=== PATIENT | female | born 1955 | race Caucasian/White ===

== ENCOUNTER 2016-08-12 08:52 | Emergency (ER) | payer BC ==
[~2016-08-12 08:52] MED LIST: *BLDWK2; *BLDWK7; ALBU17IN INH; AMBI10TA PO; AMBIEN10 PO; AMBIEN5; AMO500 PO; AUG875 PO; AVELOX PO; BACTRIMDS PO; BLEPHGTTS TOPICAL; CALCWAF4; CECLOR PO; CLOT10TR PO; DIFLUC150 PO; DOXYCYC100 PO; DRISDOL50 PO; ELOCONCR TOPICAL; FLAG250T; FLAG500T; FLAGYL250 PO; LEVA750T PO; LEVAQUI500 PO; LEXAPRO10 PO; MACROBID PO; MOBIC7.5 PO; MOTRIN; MULTIVIT; MYCELEXTRO PO; NEXIUM40 PO; PRILOSEC20; PROM12SU; REGLAN5 PO; SKELAXIN8 PO; TUMS500C; TYLE325T5 PO; VICODIN; ZOFRAN4 PO; ZYRTEC10 PO; [UNRECOGNIZED DRUG - OTHER] -
[2016-08-12 10:02] LABS: ALBUMIN 3.9 GM/DL (3.2-5.2); ALBUMIN/GLOBULIN RATIO 1.05 (1.00-1.93); ALKALINE PHOSPHATASE 114 U/L (45-117); ALT/SGPT 21 U/L (12-78); ANION GAP 8 MEQ/L (8-16); AST/SGOT 16 U/L (15-37); BILIRUBIN,DIRECT < 0.1 MG/DL (0.0-0.2); BILIRUBIN,TOTAL 0.3 MG/DL (0.2-1.0); BLOOD UREA NITROGEN 8 MG/DL (7-18); CALCIUM LEVEL 8.8 MG/DL (8.5-10.1); CARBON DIOXIDE LEVEL 27 MEQ/L (21-32); CHLORIDE LEVEL 107 MEQ/L (98-107); CREATININE FOR GFR 0.78 MG/DL (0.55-1.02); GLOMERULAR FILTRATION RATE > 60.0 (>51); GLUCOSE, FASTING 103 MG/DL (70-105); POTASSIUM SERUM 3.8 MEQ/L (3.5-5.1); SODIUM LEVEL 142 MEQ/L (136-145); TOTAL PROTEIN 7.6 GM/DL (6.4-8.2)
[2016-08-12] MEDS ORDERED: MORPHINE 4 MG/ML 1ML SYRINGE As Ordered ONE (10:13)
[2016-08-12] MEDS ORDERED: ONDANSETRON 4MG/2ML VIAL (J2405) As Ordered ONE (10:13)
--- NOTE | 2016-08-12 10:50 | REP ---
PORTABLE CHEST: AP portable view of the chest is performed. There is no acute infiltrate or pulmonary edema. Cardiac silhouette is slightly prominent but is probably magnified. Mediastinal silhouette is unremarkable. There are degenerative changes of the spine. IMPRESSION: No evidence of acute pulmonary disease. Signed by Angelo Lamb MD 08/12/2016 02:17 P
[2016-08-12] MEDS ORDERED: ISOVUE-370 76% 100ML VIAL (Q9967) As Ordered ONE (11:04)
[2016-08-12] MEDS ORDERED: PERCOCET 5MG/325MG TAB As Ordered ONE (11:24)
[2016-08-12] MEDS ORDERED: CYCLOBENZAPRINE 10 MG TAB As Ordered ONE (11:25)
--- NOTE | 2016-08-12 12:00 | REP ---
Clinical: Acute Chest pain. Technique: Axial contrast enhanced images from the thoracic inlet to the upper abdomen using 100 ml Isovue 370 intravenous contrast material with multiplanar re-formations. Findings: Satisfactory enhancement of the pulmonary vasculature is achieved. Mild respiratory motion is appreciated. No obvious filling defects are identified to suggest pulmonary embolus. Further evaluation of the mediastinum demonstrates normal thoracic aorta and heart/pericardium. The bilateral lung kelly are symmetric and essentially well aerated without consolidation, nodule or mass lesion. Mild posterior dependent changes and trace atelectasis cannot be excluded. No effusion. No pneumothorax. Tracheobronchial tree is patent. No adenopathy noted. Surrounding musculoskeletal structures intact. Upper abdomen demonstrates right renal cyst. Impression: No evidence for pulmonary embolus. Mild posterior basilar dependent changes and trace atelectasis. Incompletely evaluated right renal cyst. Signed by Eldon Babcock MD 08/12/2016 11:51 A
--- NOTE | 2016-08-12 13:51 | EDDOCDS ---
Physician Documentation [facility] Name: Milena Ortiz Age: 60 yrs Sex: Female : 1955 Arrival Date: 08/12/2016 Time: 08:52 Bed 15 Private MD: Angelo Alvarenga Disposition: 08/12/16 13:13 Discharged to Home/Self Care. Impression: Palpitations, Chest pain, unspecified, Low back pain - upper back pain probable spasm. - Condition is Stable. - Discharge Instructions: Nonspecific Chest Pain, Musculoskeletal Pain, Palpitations. - Prescriptions for Ibuprofen 600 mg Oral Tablet - take 1 tablet by ORAL route every 8 hours As needed take with food; 20 tablet. [place] 5- 325 mg Oral Tablet - take 1 tablet by ORAL route every 6 hours As needed MDD: 4 tabs; 20 tablet. Cyclobenzaprine 10 mg Oral Tablet - take 1 tablet by ORAL route 3 times per day As needed; 15 tablet. - Medication Reconciliation, Local Pharmacy Hours form. - Follow up: Angelo Alvarenga MD; When: 2 - 3 days. Follow up: Ashish Salazar; When: Call to arrange an appointment. - Problem is new. - Symptoms have improved. - Notes: call to schedule close follow up appt with drs. salazar and leonel. return if worsening symptopms Historical: - Allergies: Aveloxnightmares; Pyridium (Upset stomach); Skelaxin (Upset stomach); Chlorthalidone (insomnia); Drisdol (Vomit); fluticasone (throat ulcer); - Home Meds: 1. Vitamin D Oral 2000 units daily (Last dose: 08/11/2016) 2. multivitamin Oral tab 1 tablet daily (Last dose: 08/11/2016) 3. Ambien 5 mg Oral tab 1 tab nightly as needed (Last dose: Unknown) 4. Claritin 10 mg Oral tab 1 tab once daily as needed (Last dose: Unknown) 5. Motrin 800 mg Oral tab 1 tab 3 times per day as needed (Last dose: 08/12/2016 03:00) - PMHx: hyperlipidemia; Vitamin D Deficiency; Anemia; Cancer, Ovarian; Grave's Disease; - PSHx: Hysterectomy; Tonsillectomy; - Social history: Smoking status: Patient states was never smoker of tobacco. No barriers to communication noted, The patient speaks fluent Bermudian. - Family history: Not pertinent. - : The pt / caregiver states he / she is not on anticoagulants. Home medication list is obtained from the patient. - Exposure Risk Screening:: None identified. Vital Signs: 08/12 09:08 BP 189 / 91 (auto/); mk4 09:11 BP 187 / 91; Pulse 73; Resp 20; Temp 97.2(O); Pulse Ox 96% on R/A; Weight 104.33 kg / jc4 230.01 lbs; Height 5 ft. 3 in. (160.02 cm); Pain 7/10; 09:13 Pulse 74 MON; Pulse Ox 96% ; mk4 09:29 BP 165 / 77 (auto/); mk4 09:29 Pulse 72 MON; Pulse Ox 95% ; mk4 09:38 BP 200 / 95 (auto/); mk4 09:38 Pulse 70 MON; Pulse Ox 96% ; mk4 09:53 BP 161 / 85 (auto/); mk4 09:53 Pulse 68 MON; Pulse Ox 96% ; mk4 10:08 BP 139 / 81 (auto/); mk4 10:09 Pulse 72 MON; Pulse Ox 95% ; mk4 10:23 BP 138 / 73 (auto/); mk4 10:24 Pulse 70 MON; Pulse Ox 95% ; mk4 10:38 BP 137 / 63 (auto/); mk4 10:38 Pulse 72 MON; Pulse Ox 95% ; mk4 10:52 Pulse 68 MON; Pulse Ox 93% ; cjh 10:53 BP 122 / 58 (auto/); cjh 11:07 Pulse 72 MON; Pulse Ox 94% ; Pain 2/10; cjh 11:08 BP 135 / 70 (auto/); cjh 11:52 Pulse 70 MON; Pulse Ox 95% ; cjh 11:53 BP 137 / 69 (auto/); cjh 12:07 Pulse 70 MON; Pulse Ox 93% ; cjh 12:08 BP 135 / 64 (auto/); cjh 12:22 Pulse 70 MON; Pulse Ox 93% ; cjh 12:23 BP 136 / 65 (auto/); cjh 12:37 Pulse 78 MON; Pulse Ox 95% ; cjh 12:38 BP 158 / 71 (auto/); cjh 12:52 Pulse 70 MON; Pulse Ox 94% ; cjh 12:53 BP 151 / 73 (auto/); cjh 13:07 Pulse 72 MON; Pulse Ox 97% ; cjh 13:08 BP 138 / 90 (auto/); cjh 13:22 Pulse 70 MON; Pulse Ox 98% ; cjh 13:23 BP 141 / 86 (auto/); cjh 13:34 Pulse 66 MON; Pulse Ox 98% ; cjh 13:34 BP 145 / 70 (auto/); cjh 13:47 BP 154 / 70; Pulse 74; Resp 16; Temp 96.3; Pulse Ox 98% ; Pain 0/10; cjh 09:11 Body Mass Index 40.74 (104.33 kg, 160.02 cm) jc4 MDM: 08:57 ECG WITH READING ER PHYS+CARDIAG ordered. EDMS 09:40 IV Saline Lock ordered. ml 09:40 Ondansetron 4 mg IVP once ordered. ml 09:40 morphine 4 mg IVP once; slow ivp ordered. ml 09:41 CBC with Diff Ordered. EDMS 09:41 MED Profile Ordered. EDMS 09:41 CIP Ordered. EDMS 09:41 Troponin Ordered. EDMS 09:41 Liver Profile Ordered. EDMS 09:41 TSH with Free T4 Ordered. EDMS 09:42 Chest, 1 View Ordered. EDMS 09:56 Financial registration complete. mm15 10:05 [facility] Payment Agreement was scanned into [employer] and attached to record. mm15 10:54 MED Profile Reviewed. ml 10:54 CIP Reviewed. ml 10:54 Troponin Reviewed. ml 10:54 Liver Profile Reviewed. ml 10:54 TSH with Free T4 Reviewed. ml 10:56 CT Chest Angio R/O PE Ordered. EDMS 10:58 oxyCODONE-acetaminophen 5 mg-325 mg 1 tabs PO once ordered. ml 10:58 Cyclobenzaprine 10 mg PO once ordered. ml 13:08 Chest, 1 View Reviewed. ml 13:08 CT Chest Angio R/O PE Reviewed. ml Administered Medications: 10:23 Drug: Ondansetron 4 mg Route: IVP; Site: right antecubital; mk4 10:23 Drug: morphine 4 mg [morphine 4 mg/mL intravenous cartridge (1 mL)] Route: IVP; Site: mk4 right antecubital; 11:42 Drug: oxyCODONE-acetaminophen 1 tabs [oxycodone-acetaminophen 5 mg-325 mg tablet (1 cjh tabs)] Route: PO; 12:16 Follow up: Response: Confirmed pt not driving.; No Adverse Reaction; Pain is decreased [facility] 11:42 Drug: Cyclobenzaprine 10 mg [cyclobenzaprine 10 mg tablet (1 tabs)] Route: PO; [facility] 12:16 Follow up: Response: Confirmed pt not driving.; No Adverse Reaction; Pain is decreased [facility] Signatures: Dispatcher [employer] EDUri Garcia MD MD Kelley Ferrari RN RN jc4 Madhavi Garcia RN RN cj Elver Argueta mm15 Courtney Moreno RN RN mk4 The chart was reviewed and I authenticate all verbal orders and agree with the evaluation and treatment provided.Attachments: 10:05 [facility] Payment Agreement mm15 MTDD
--- NOTE | 2016-08-12 13:52 | EDDOCDS ---
Nurse's Notes [facility] Name: Milena Ortiz Age: 60 yrs Sex: Female : 1955 Arrival Date: 08/12/2016 Time: 08:52 Bed 15 Private MD: Angelo Alvarenga Diagnosis: Palpitations;Chest pain, unspecified;Low back pain-upper back pain probable spasm Presentation: 08/12 08:59 Presenting complaint: Patient states: developed pain in left scapula following jc4 exercising on 08/08 and now has tightness in the side of her chest since "over the weekend". Denies any shortness of breath but states, "it feels as if I have to take a deeper breath". States has had palpitations yesterday. Aspirin was not taken prior to arrival. Suicide/Homicide risk assessment- the patient denies having any suicidal and/or homicidal ideations and does not present with any other emotional, behavioral or mental health complaints. Status: Patient is not a juke box servicer or dependent. Transition of care: patient was not received from another setting of care. 08:59 Acuity: CANDI Level 2 jc4 08:59 Method Of Arrival: Walkin/Carried/Asstd jc4 09:12 Adult Sepsis Screening: The patient does not have new or worsening altered mentation. jc4 Patient's respiratory rate is less than 22. Systolic blood pressure is greater than 100. Patient has a qSOFA score of 0- Negative Sepsis Screen. Triage Assessment: 09:06 General: Appears uncomfortable. Pain: Pain currently is 7 out of 10 on a pain scale. jc4 The patient is triaged at the bedside. See Assessment in Nurses Notes section of ED record. Cardiovascular: Chest pain is described as Pain is 7 out of 10 on a pain scale. quality is tightness is located in left anterior chest wall radiates Does not radiate. episodes are continuous began "over the weekend". Historical: - Allergies: Aveloxnightmares; Pyridium (Upset stomach); Skelaxin (Upset stomach); Chlorthalidone (insomnia); Drisdol (Vomit); fluticasone (throat ulcer); - Home Meds: 1. Vitamin D Oral 2000 units daily (Last dose: 08/11/2016) 2. multivitamin Oral tab 1 tablet daily (Last dose: 08/11/2016) 3. Ambien 5 mg Oral tab 1 tab nightly as needed (Last dose: Unknown) 4. Claritin 10 mg Oral tab 1 tab once daily as needed (Last dose: Unknown) 5. Motrin 800 mg Oral tab 1 tab 3 times per day as needed (Last dose: 08/12/2016 03:00) - PMHx: hyperlipidemia; Vitamin D Deficiency; Anemia; Cancer, Ovarian; Grave's Disease; - PSHx: Hysterectomy; Tonsillectomy; - Social history: Smoking status: Patient states was never smoker of tobacco. No barriers to communication noted, The patient speaks fluent Bengali. - Family history: Not pertinent. - : The pt / caregiver states he / she is not on anticoagulants. Home medication list is obtained from the patient. - Exposure Risk Screening:: None identified. Screenin:54 Screening information is obtained from the patient. Fall risk: No risks identified. mk4 Assistance ADL's: requires no assistance with activities of daily living. Abuse/DV Screen: The patient / caregiver reports he/she is: not in a situation that causes fear, pain or injury. Nutritional screening: No deficits noted. Advance Directives: Currently, there is no health care proxy. There is no active DNR order. There is no living will. There is no Power of Cage Cashier. Advance directive information has not previously been placed in an [facility] medical record. Further advance directive information is declined. home support is adequate. Assessment: 09:36 General: Appears in no apparent distress, comfortable, Behavior is cooperative. mk4 09:36 Pain: Location: left scapular area Pain began Friday after excercising, gradually mk4 moving to left chest. Cardiovascular: Rhythm is regular. Respiratory: Airway is patent Respiratory effort is even, unlabored, Respiratory pattern is regular, Breath sounds are clear bilaterally. 10:10 General: Appears uncomfortable. General: denies any chest pain states left scapular mk4 pain worse, Dr Lamb aware and orders recvd . Pain: Location: left scapular area Pain currently is 8 out of 10 on a pain scale. Neurological: Level of Consciousness is awake, alert. Cardiovascular: Rhythm is regular. Derm: Skin is intact, is healthy with good turgor, Skin is pink, warm & dry. 10:54 General: Appears uncomfortable, pt states the morphine took " the hard pain away" but mk4 she is still having what feels like " muscle spasm left trapezius and scapular area. 11:42 General: returned from CT, tolerated well, gingerale provided,medications administered. [facility] 12:15 General: resting quietly on stretcher reports pain decreased to 2/10 and comfortable, cjh at bedside, denies further needs, will continue to monitor. 13:47 General: Appears in no apparent distress, comfortable, Behavior is appropriate for age, cjh cooperative, denies pain or discomfort at this hawk e, reviewed discharge instructions, encouraged and answered questions. leaving with SO who is at bedside, declines offer of wheelchair to curb, declines other assistance. Vital Signs: 09:08 BP 189 / 91 (auto/); mk4 09:11 BP 187 / 91; Pulse 73; Resp 20; Temp 97.2(O); Pulse Ox 96% on R/A; Weight 104.33 kg; jc4 Height 5 ft. 3 in. (160.02 cm); Pain 7/10; 09:13 Pulse 74 MON; Pulse Ox 96% ; mk4 09:29 BP 165 / 77 (auto/); mk4 09:29 Pulse 72 MON; Pulse Ox 95% ; mk4 09:38 BP 200 / 95 (auto/); mk4 09:38 Pulse 70 MON; Pulse Ox 96% ; mk4 09:53 BP 161 / 85 (auto/); mk4 09:53 Pulse 68 MON; Pulse Ox 96% ; mk4 10:08 BP 139 / 81 (auto/); mk4 10:09 Pulse 72 MON; Pulse Ox 95% ; mk4 10:23 BP 138 / 73 (auto/); mk4 10:24 Pulse 70 MON; Pulse Ox 95% ; mk4 10:38 BP 137 / 63 (auto/); mk4 10:38 Pulse 72 MON; Pulse Ox 95% ; mk4 10:52 Pulse 68 MON; Pulse Ox 93% ; cjh 10:53 BP 122 / 58 (auto/); cjh 11:07 Pulse 72 MON; Pulse Ox 94% ; Pain 2/10; cjh 11:08 BP 135 / 70 (auto/); cjh 11:52 Pulse 70 MON; Pulse Ox 95% ; cjh 11:53 BP 137 / 69 (auto/); cjh 12:07 Pulse 70 MON; Pulse Ox 93% ; cjh 12:08 BP 135 / 64 (auto/); cjh 12:22 Pulse 70 MON; Pulse Ox 93% ; cjh 12:23 BP 136 / 65 (auto/); cjh 12:37 Pulse 78 MON; Pulse Ox 95% ; cjh 12:38 BP 158 / 71 (auto/); cjh 12:52 Pulse 70 MON; Pulse Ox 94% ; cjh 12:53 BP 151 / 73 (auto/); cjh 13:07 Pulse 72 MON; Pulse Ox 97% ; cjh 13:08 BP 138 / 90 (auto/); cjh 13:22 Pulse 70 MON; Pulse Ox 98% ; cjh 13:23 BP 141 / 86 (auto/); cjh 13:34 Pulse 66 MON; Pulse Ox 98% ; cjh 13:34 BP 145 / 70 (auto/); cjh 13:47 BP 154 / 70; Pulse 74; Resp 16; Temp 96.3; Pulse Ox 98% ; Pain 0/10; cjh 09:11 Body Mass Index 40.74 (104.33 kg, 160.02 cm) [facility] Vitals: 09:06 Log In Time: August 12, 2016 at 08:54. 4 ED Course: 08:53 Patient visited by Jarrett Wan, Reg. lg 08:53 Angelo Alvarenga MD is Private Physician. lg 08:53 Patient moved to Waiting lg 08:56 Patient moved to 15 4 09:00 Triage Initiated 4 09:12 The patient / caregiver is instructed regarding the plan of care and ED course. Cardiac jc4 monitor on. Pulse ox on. NIBP on. 09:30 Uri Coy MD is Attending Physician. ml 09:30 Patient visited by Uri Coy MD. ml 09:39 Patient visited by Courtney Moreno, CHRISTINA. mk4 10:00 Inserted saline lock: 20 gauge in right antecubital area and blood collected. mk4 10:05 [facility] Payment Agreement was scanned into [employer] and attached to record. mm15 10:11 Patient visited by Courtney Moreno, RN. mk4 10:47 Patient visited by Courtney Moreno, CHRISTINA. mk4 10:54 No procedures done that require assistance. mk4 11:16 Chest, 1 View Returned. EDMS 12:09 Patient visited by Suki Vivas PCA. ar3 12:14 CT Chest Angio R/O PE Returned. EDMS 12:44 Patient visited by Madhavi Garcia RN. [facility] 13:12 Angelo Alvarenga MD is Referral Physician. ml 13:12 Ashish Salazar is Referral Physician. ml 13:47 Discontinued lock intact, bleeding controlled, pressure dressing applied, No cjh redness/swelling at site. Administered Medications: 10:23 Drug: Ondansetron 4 mg Route: IVP; Site: right antecubital; mk4 10:23 Drug: morphine 4 mg [morphine 4 mg/mL intravenous cartridge (1 mL)] Route: IVP; Site: mk4 right antecubital; 11:42 Drug: oxyCODONE-acetaminophen 1 tabs [oxycodone-acetaminophen 5 mg-325 mg tablet (1 cjh tabs)] Route: PO; 12:16 Follow up: Response: Confirmed pt not driving.; No Adverse Reaction; Pain is decreased [facility] 11:42 Drug: Cyclobenzaprine 10 mg [cyclobenzaprine 10 mg tablet (1 tabs)] Route: PO; [facility] 12:16 Follow up: Response: Confirmed pt not driving.; No Adverse Reaction; Pain is decreased [facility] Order Results: Lab Order: MED Profile; SPEC'M 08/12/ 09:30 Test: GLUCOSE, FASTING; Value: 103; Range: 70-105; Units: MG/DL; Status: F Test: BLOOD UREA NITROGEN; Value: 8; Range: 7-18; Units: MG/DL; Status: F Test: CREATININE FOR GFR; Value: 0.78; Range: 0.55-1.02; Units: MG/DL; Status: F Test: GLOMERULAR FILTRATION RATE; Value: > 60.0; Range: >51; Status: F Test: SODIUM LEVEL; Value: 142; Range: 136-145; Units: MEQ/L; Status: F Test: POTASSIUM SERUM; Value: 3.8; Range: 3.5-5.1; Units: MEQ/L; Status: F Test: CHLORIDE LEVEL; Value: 107; Range: 98-107; Units: MEQ/L; Status: F Test: CARBON DIOXIDE LEVEL; Value: 27; Range: 21-32; Units: MEQ/L; Status: F Test: ANION GAP; Value: 8; Range: 8-16; Units: MEQ/L; Status: F Test: CALCIUM LEVEL; Value: 8.8; Range: 8.5-10.1; Units: MG/DL; Status: F Test Note: ; Units are mL/min/1.73 m2 Chronic Kidney Disease Staging per NKF: Stage I & II GFR >=60 Normal to Mildly Decreased Stage III GFR 30-59 Moderately Decreased Stage IV GFR 15-29 Severely Decreased Stage V GFR <15 Very Little GFR Left ESRD GFR <15 on STORAGE GARAGE ATTENDANT Lab Order: CIP; 08/12/16 09:30 Test: CPK CREATINE PHOSPHOKINASE; Value: 77; Range: 26-192; Units: U/L; Status: F Test: CK-MB VALUE MASS; Value: 1.6; Range: 0.0-3.6; Units: NG/ML; Status: F Test: MB/CK RELATIVE INDEX; Value: 2.07; Range: < OR =4; Status: F Test Note: ; DIAGNOSIS CRITERIA MMB ng/ml Relative Index (RI) NON-AMI < or = 5 N/A LAMB ZONE > 5 < or = 4 AMI > 5 > 4 Lab Order: Troponin; 08/12/16 09:30 Test: TROPONIN I; Value: < 0.02; Range: < 0.10; Units: NG/ML; Status: F Test Note: ; Troponin I Reference Interval for [place] LOCI: 99th Percentile= 0.00-0.045 ng/ml Risk Stratification: <= 0.10 ng/ml Decreased Risk for Adverse Clinical Events. 0.10-1.50 ng/ml Increased Risk for Adverse Clinical Events. Evaluation of additional criterion and/or repeat testing in 2-6 hours is suggested to rule out myocardial damage. >= 1.50 ng/ml Indicative of Myocardial Injury. Lab Order: Liver Profile; 08/12/16 09:30 Test: AST/SGOT; Value: 16; Range: 15-37; Units: U/L; Status: F Test: ALT/SGPT; Value: 21; Range: 12-78; Units: U/L; Status: F Test: ALKALINE PHOSPHATASE; Value: 114; Range: 45-117; Units: U/L; Status: F Test: BILIRUBIN,TOTAL; Value: 0.3; Range: 0.2-1.0; Units: MG/DL; Status: F Test: BILIRUBIN,DIRECT; Value: < 0.1; Range: 0.0-0.2; Units: MG/DL; Status: F Test: TOTAL PROTEIN; Value: 7.6; Range: 6.4-8.2; Units: GM/DL; Status: F Test: ALBUMIN; Value: 3.9; Range: 3.2-5.2; Units: GM/DL; Status: F Test: ALBUMIN/GLOBULIN RATIO; Value: 1.05; Range: 1.00-1.93; Status: F Lab Order: TSH with Free T4; SPEC'M 08/12/16 09:30 Test: THYROID STIMULATING HORMONE; Value: 0.508; Range: 0.358-3.740; Units: uIU/ML; Status: F Test: FREE T4; Value: 1.30; Range: 0.76-1.46; Units: NG/DL; Status: F Radiology Order: Chest, 1 View Test: Chest, 1 View REASON FOR EXAMINATION: Chest Pain; ; PORTABLE CHEST:; ; AP portable view of the chest is performed.; ; There is no acute infiltrate or pulmonary edema. Cardiac silhouette is slightly; prominent but is probably magnified. Mediastinal silhouette is unremarkable.; There are degenerative changes of the spine.; ; IMPRESSION:; No evidence of acute pulmonary disease.; ; ; ; Unreviewed; Radiology Order: CT Chest Angio R/O PE Test: CT Chest Angio R/O PE REASON FOR EXAMINATION: cp; Clinical: Acute Chest pain.; ; Technique: Axial contrast enhanced images from the thoracic inlet to the upper; abdomen using 100 ml Isovue 370 intravenous contrast material with multiplanar; re-formations.; ; Findings: Satisfactory enhancement of the pulmonary vasculature is achieved.; Mild respiratory motion is appreciated. No obvious filling defects are; identified to suggest pulmonary embolus. Further evaluation of the mediastinum; demonstrates normal thoracic aorta and heart/pericardium. The bilateral lung; kelly are symmetric and essentially well aerated without consolidation, nodule; or mass lesion. Mild posterior dependent changes and trace atelectasis cannot be; excluded. No effusion. No pneumothorax. Tracheobronchial tree is patent. No; adenopathy noted. Surrounding musculoskeletal structures intact. Upper abdomen; demonstrates right renal cyst.; ; Impression:; No evidence for pulmonary embolus.; Mild posterior basilar dependent changes and trace atelectasis.; Incompletely evaluated right renal cyst.; ; ; Signed by; Eldno Babcock MD 08/12/2016 11:51 A; Outcome: 13:13 Discharge ordered by Provider. 13:47 Discharge Assessment: Patient awake, alert and oriented x 3. No cognitive and/or [facility] functional deficits noted. Patient verbalized understanding of disposition instructions. patient administered narcotics - yes. Pt provided with safe discharge. The following High Risk Discharge criteria are identified: None. Discharged to home ambulatory, with significant other. Condition: good Condition: stable Condition: improved. Discharge instructions given to patient, Instructed on discharge instructions, follow up and referral plans. medication usage, Demonstrated understanding of instructions, medications, Pt was receptive of discharge instructions/ teaching. Prescriptions given X 3. CT Study completed. Property :Personal belongings accompany Pt. 13:50 Patient left the ED. [facility] Signatures: Dispatcher [employer] EDMS Uri Coy MD MD ml Jarrett Wan, Reg Reg lg Suki Vivas, SECTION LABORER SECTION LABORER ar3 Kelley Ferrari, RN RN jc4 Madhavi Garcia RN RN [facility] Elver Argueta mm15 Courtney Moreno, RN RN mk4 MTDD
[2016-08-12 15:43] LABS: BASO % 0.3 % (0.0-1.0); EOS # 0.2 K/mm3 (0.0-0.50); EOS % 3.3 % (0.0-3.0); LARGE UNSTAINED CELL # 0.1 K/mm3 (0.0-0.4); LARGE UNSTAINED CELL % 1.7 % (0.0-4.0); LYMPH # 1.5 K/mm3 (1.5-4.5); LYMPH % 26.1 % (24.0-44.0); MEAN CORPUSCULAR HEMOGLOBIN 28.4 pg (27.0-33.0); MEAN CORPUSCULAR HGB CONC 33.1 g/dl (32.0-36.5); MEAN CORPUSCULAR VOLUME 85.9 fl (80.0-96.0); MONO # 0.3 K/mm3 (0.0-0.8); MONO % 4.9 % (0.0-5.0); NEUTROPHILS # 3.6 K/mm3 (1.8-7.7); NEUTROPHILS % 63.9 % (36.0-66.0); PLATELET COUNT, AUTOMATED 302 k/mm3 (150-450); RED CELL DISTRIBUTION WIDTH 13.1 % (11.5-14.5); WHITE BLOOD COUNT 5.6 K/mm3 (4.0-10.0)
--- NOTE | 2016-08-13 07:46 | ECGEPIP ---
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
--- NOTE | 2016-08-14 14:51 | EDDOCDS ---
Nurse's Notes [facility] Name: Lo Ortiz Age: 60 yrs Sex: Female : 1955 Arrival Date: 08/12/2016 Time: 08:52 Bed 15 Private MD: Angelo Alvarenga Diagnosis: Palpitations;Chest pain, unspecified;Low back pain-upper back pain probable spasm Presentation: 08/12 08:59 Presenting complaint: Patient states: developed pain in left scapula following jc4 exercising on 08/08 and now has tightness in the side of her chest since "over the weekend". Denies any shortness of breath but states, "it feels as if I have to take a deeper breath". States has had palpitations yesterday. Aspirin was not taken prior to arrival. Suicide/Homicide risk assessment- the patient denies having any suicidal and/or homicidal ideations and does not present with any other emotional, behavioral or mental health complaints. Status: Patient is not a managed services sales consultant or dependent. Transition of care: patient was not received from another setting of care. 08:59 Acuity: CANDI Level 2 jc4 08:59 Method Of Arrival: Walkin/Carried/Asstd jc4 09:12 Adult Sepsis Screening: The patient does not have new or worsening altered mentation. jc4 Patient's respiratory rate is less than 22. Systolic blood pressure is greater than 100. Patient has a qSOFA score of 0- Negative Sepsis Screen. Triage Assessment: 09:06 General: Appears uncomfortable. Pain: Pain currently is 7 out of 10 on a pain scale. jc4 The patient is triaged at the bedside. See Assessment in Nurses Notes section of ED record. Cardiovascular: Chest pain is described as Pain is 7 out of 10 on a pain scale. quality is tightness is located in left anterior chest wall radiates Does not radiate. episodes are continuous began "over the weekend". Historical: - Allergies: Aveloxnightmares; Pyridium (Upset stomach); Skelaxin (Upset stomach); Chlorthalidone (insomnia); Drisdol (Vomit); fluticasone (throat ulcer); - Home Meds: 1. Vitamin D Oral 2000 units daily (Last dose: 08/11/2016) 2. multivitamin Oral tab 1 tablet daily (Last dose: 08/11/2016) 3. Ambien 5 mg Oral tab 1 tab nightly as needed (Last dose: Unknown) 4. Claritin 10 mg Oral tab 1 tab once daily as needed (Last dose: Unknown) 5. Motrin 800 mg Oral tab 1 tab 3 times per day as needed (Last dose: 08/12/2016 03:00) - PMHx: hyperlipidemia; Vitamin D Deficiency; Anemia; Cancer, Ovarian; Grave's Disease; - PSHx: Hysterectomy; Tonsillectomy; - Social history: Smoking status: Patient states was never smoker of tobacco. No barriers to communication noted, The patient speaks fluent Mongolian. - Family history: Not pertinent. - : The pt / caregiver states he / she is not on anticoagulants. Home medication list is obtained from the patient. - Exposure Risk Screening:: None identified. Screenin:54 Screening information is obtained from the patient. Fall risk: No risks identified. mk4 Assistance ADL's: requires no assistance with activities of daily living. Abuse/DV Screen: The patient / caregiver reports he/she is: not in a situation that causes fear, pain or injury. Nutritional screening: No deficits noted. Advance Directives: Currently, there is no health care proxy. There is no active DNR order. There is no living will. There is no Power of Tile Layer Supervisor. Advance directive information has not previously been placed in an [facility] medical record. Further advance directive information is declined. home support is adequate. Assessment: 09:36 General: Appears in no apparent distress, comfortable, Behavior is cooperative. mk4 09:36 Pain: Location: left scapular area Pain began Friday after excercising, gradually mk4 moving to left chest. Cardiovascular: Rhythm is regular. Respiratory: Airway is patent Respiratory effort is even, unlabored, Respiratory pattern is regular, Breath sounds are clear bilaterally. 10:10 General: Appears uncomfortable. General: denies any chest pain states left scapular mk4 pain worse, Dr Lamb aware and orders recvd . Pain: Location: left scapular area Pain currently is 8 out of 10 on a pain scale. Neurological: Level of Consciousness is awake, alert. Cardiovascular: Rhythm is regular. Derm: Skin is intact, is healthy with good turgor, Skin is pink, warm & dry. 10:54 General: Appears uncomfortable, pt states the morphine took " the hard pain away" but mk4 she is still having what feels like " muscle spasm left trapezius and scapular area. 11:42 General: returned from CT, tolerated well, gingerale provided,medications administered. [facility] 12:15 General: resting quietly on stretcher reports pain decreased to 2/10 and comfortable, cjh at bedside, denies further needs, will continue to monitor. 13:47 General: Appears in no apparent distress, comfortable, Behavior is appropriate for age, cjh cooperative, denies pain or discomfort at this hawk e, reviewed discharge instructions, encouraged and answered questions. leaving with SO who is at bedside, declines offer of wheelchair to curb, declines other assistance. Vital Signs: 09:08 BP 189 / 91 (auto/); mk4 09:11 BP 187 / 91; Pulse 73; Resp 20; Temp 97.2(O); Pulse Ox 96% on R/A; Weight 104.33 kg; jc4 Height 5 ft. 3 in. (160.02 cm); Pain 7/10; 09:13 Pulse 74 MON; Pulse Ox 96% ; mk4 09:29 BP 165 / 77 (auto/); mk4 09:29 Pulse 72 MON; Pulse Ox 95% ; mk4 09:38 BP 200 / 95 (auto/); mk4 09:38 Pulse 70 MON; Pulse Ox 96% ; mk4 09:53 BP 161 / 85 (auto/); mk4 09:53 Pulse 68 MON; Pulse Ox 96% ; mk4 10:08 BP 139 / 81 (auto/); mk4 10:09 Pulse 72 MON; Pulse Ox 95% ; mk4 10:23 BP 138 / 73 (auto/); mk4 10:24 Pulse 70 MON; Pulse Ox 95% ; mk4 10:38 BP 137 / 63 (auto/); mk4 10:38 Pulse 72 MON; Pulse Ox 95% ; mk4 10:52 Pulse 68 MON; Pulse Ox 93% ; cjh 10:53 BP 122 / 58 (auto/); cjh 11:07 Pulse 72 MON; Pulse Ox 94% ; Pain 2/10; cjh 11:08 BP 135 / 70 (auto/); cjh 11:52 Pulse 70 MON; Pulse Ox 95% ; cjh 11:53 BP 137 / 69 (auto/); cjh 12:07 Pulse 70 MON; Pulse Ox 93% ; cjh 12:08 BP 135 / 64 (auto/); cjh 12:22 Pulse 70 MON; Pulse Ox 93% ; cjh 12:23 BP 136 / 65 (auto/); cjh 12:37 Pulse 78 MON; Pulse Ox 95% ; cjh 12:38 BP 158 / 71 (auto/); cjh 12:52 Pulse 70 MON; Pulse Ox 94% ; cjh 12:53 BP 151 / 73 (auto/); cjh 13:07 Pulse 72 MON; Pulse Ox 97% ; cjh 13:08 BP 138 / 90 (auto/); cjh 13:22 Pulse 70 MON; Pulse Ox 98% ; cjh 13:23 BP 141 / 86 (auto/); cjh 13:34 Pulse 66 MON; Pulse Ox 98% ; cjh 13:34 BP 145 / 70 (auto/); cjh 13:47 BP 154 / 70; Pulse 74; Resp 16; Temp 96.3; Pulse Ox 98% ; Pain 0/10; cjh 09:11 Body Mass Index 40.74 (104.33 kg, 160.02 cm) [facility] Vitals: 09:06 Log In Time: August 12, 2016 at 08:54. 4 ED Course: 08:53 Patient visited by Jarrett Wan, Reg. lg 08:53 Angelo Alvarenga MD is Private Physician. lg 08:53 Patient moved to Waiting lg 08:56 Patient moved to 15 4 09:00 Triage Initiated 4 09:12 The patient / caregiver is instructed regarding the plan of care and ED course. Cardiac jc4 monitor on. Pulse ox on. NIBP on. 09:30 Uri Coy MD is Attending Physician. ml 09:30 Patient visited by Uri Coy MD. ml 09:39 Patient visited by Courtney Moreno, CHRISTINA. mk4 10:00 Inserted saline lock: 20 gauge in right antecubital area and blood collected. mk4 10:05 [facility] Payment Agreement was scanned into [employer] and attached to record. mm15 10:11 Patient visited by Courtney Moreno, RN. mk4 10:47 Patient visited by Courtney Moreno, CHRISTINA. mk4 10:54 No procedures done that require assistance. mk4 11:16 Chest, 1 View Returned. EDMS 12:09 Patient visited by Suki Vivas PCA. ar3 12:14 CT Chest Angio R/O PE Returned. EDMS 12:44 Patient visited by Madhavi Garcia RN. cj 13:12 Angelo Alvarenga MD is Referral Physician. ml 13:12 Ashish Salazar is Referral Physician. ml 13:47 Discontinued lock intact, bleeding controlled, pressure dressing applied, No [facility] redness/swelling at site. 14:22 Chest, 1 View Returned. EDMS 0214 08:04 EKG-ADULT Returned. EDMS 11:07 T-Sheet-- Draft Copy was scanned into [employer] and attached to record. 11:08 ECG/EKG was scanned into [employer] and attached to record. 11:08 Radiology Report was scanned into [employer] and attached to record. Administered Medications: 08/12 10:23 Drug: Ondansetron 4 mg Route: IVP; Site: right antecubital; mk4 10:23 Drug: morphine 4 mg [morphine 4 mg/mL intravenous cartridge (1 mL)] Route: IVP; Site: mk4 right antecubital; 11:42 Drug: oxyCODONE-acetaminophen 1 tabs [oxycodone-acetaminophen 5 mg-325 mg tablet (1 cjh tabs)] Route: PO; 12:16 Follow up: Response: Confirmed pt not driving.; No Adverse Reaction; Pain is decreased [facility] 11:42 Drug: Cyclobenzaprine 10 mg [cyclobenzaprine 10 mg tablet (1 tabs)] Route: PO; [facility] 12:16 Follow up: Response: Confirmed pt not driving.; No Adverse Reaction; Pain is decreased [facility] Order Results: Lab Order: CBC with Diff; SPEC'M 08/12/16 09:30 Test: WHITE BLOOD COUNT; Value: 5.6; Range: 4.0-10.0; Units: K/mm3; Status: F Test: RED BLOOD COUNT; Value: 4.61; Range: 4.00-5.40; Units: M/mm3; Status: F Test: HEMOGLOBIN; Value: 13.1; Range: 12.0-16.0; Units: g/dl; Status: F Test: HEMATOCRIT; Value: 39.6; Range: 36.0-47.0; Units: %; Status: F Test: MEAN CORPUSCULAR VOLUME; Value: 85.9; Range: 80.0-96.0; Units: fl; Status: F Test: MEAN CORPUSCULAR HEMOGLOBIN; Value: 28.4; Range: 27.0-33.0; Units: pg; Status: F Test: MEAN CORPUSCULAR HGB CONC; Value: 33.1; Range: 32.0-36.5; Units: g/dl; Status: F Test: RED CELL DISTRIBUTION WIDTH; Value: 13.1; Range: 11.5-14.5; Units: %; Status: F Test: PLATELET COUNT, AUTOMATED; Value: 302; Range: 150-450; Units: k/mm3; Status: F Test: NEUTROPHILS %; Value: 63.9; Range: 36.0-66.0; Units: %; Status: F Test: LYMPH %; Value: 26.1; Range: 24.0-44.0; Units: %; Status: F Test: MONO %; Value: 4.9; Range: 0.0-5.0; Units: %; Status: F Test: EOS %; Value: 3.3; Range: 0.0-3.0; Abnormal: Above high normal; Units: %; Status: F Test: BASO %; Value: 0.3; Range: 0.0-1.0; Units: %; Status: F Test: LARGE UNSTAINED CELL %; Value: 1.7; Range: 0.0-4.0; Units: %; Status: F Test: NEUTROPHILS #; Value: 3.6; Range: 1.8-7.7; Units: K/mm3; Status: F Test: LYMPH #; Value: 1.5; Range: 1.5-4.5; Units: K/mm3; Status: F Test: MONO #; Value: 0.3; Range: 0.0-0.8; Units: K/mm3; Status: F Test: EOS #; Value: 0.2; Range: 0.0-0.50; Units: K/mm3; Status: F Test: BASO #; Value: 0.0; Range: 0.0-0.2; Units: K/mm3; Status: F Test: LARGE UNSTAINED CELL #; Value: 0.1; Range: 0.0-0.4; Units: K/mm3; Status: F Lab Order: MED Profile; SPEC08/12/16 09:30 Test: GLUCOSE, FASTING; Value: 103; Range: 70-105; Units: MG/DL; Status: F Test: BLOOD UREA NITROGEN; Value: 8; Range: 7-18; Units: MG/DL; Status: F Test: CREATININE FOR GFR; Value: 0.78; Range: 0.55-1.02; Units: MG/DL; Status: F Test: GLOMERULAR FILTRATION RATE; Value: > 60.0; Range: >51; Status: F Test: SODIUM LEVEL; Value: 142; Range: 136-145; Units: MEQ/L; Status: F Test: POTASSIUM SERUM; Value: 3.8; Range: 3.5-5.1; Units: MEQ/L; Status: F Test: CHLORIDE LEVEL; Value: 107; Range: 98-107; Units: MEQ/L; Status: F Test: CARBON DIOXIDE LEVEL; Value: 27; Range: 21-32; Units: MEQ/L; Status: F Test: ANION GAP; Value: 8; Range: 8-16; Units: MEQ/L; Status: F Test: CALCIUM LEVEL; Value: 8.8; Range: 8.5-10.1; Units: MG/DL; Status: F Test Note: ; Units are mL/min/1.73 m2 Chronic Kidney Disease Staging per NKF: Stage I & II GFR >=60 Normal to Mildly Decreased Stage III GFR 30-59 Moderately Decreased Stage IV GFR 15-29 Severely Decreased Stage V GFR <15 Very Little GFR Left ESRD GFR <15 on BUT[facility]ER SCULLION Lab Order: CIP; SPEC08/12/16 09:30 Test: CPK CREATINE PHOSPHOKINASE; Value: 77; Range: 26-192; Units: U/L; Status: F Test: CK-MB VALUE MASS; Value: 1.6; Range: 0.0-3.6; Units: NG/ML; Status: F Test: MB/CK RELATIVE INDEX; Value: 2.07; Range: < OR =4; Status: F Test Note: ; DIAGNOSIS CRITERIA MMB ng/ml Relative Index (RI) NON-AMI < or = 5 N/A LAMB ZONE > 5 < or = 4 AMI > 5 > 4 Lab Order: Troponin; SPEC08/12/16 09:30 Test: TROPONIN I; Value: < 0.02; Range: < 0.10; Units: NG/ML; Status: F Test Note: ; Troponin I Reference Interval for Siemens Kurtosys LOCI: 99th Percentile= 0.00-0.045 ng/ml Risk Stratification: <= 0.10 ng/ml Decreased Risk for Adverse Clinical Events. 0.10-1.50 ng/ml Increased Risk for Adverse Clinical Events. Evaluation of additional criterion and/or repeat testing in 2-6 hours is suggested to rule out myocardial damage. >= 1.50 ng/ml Indicative of Myocardial Injury. Lab Order: Liver Profile; SPEC08/12/16 09:30 Test: AST/SGOT; Value: 16; Range: 15-37; Units: U/L; Status: F Test: ALT/SGPT; Value: 21; Range: 12-78; Units: U/L; Status: F Test: ALKALINE PHOSPHATASE; Value: 114; Range: 45-117; Units: U/L; Status: F Test: BILIRUBIN,TOTAL; Value: 0.3; Range: 0.2-1.0; Units: MG/DL; Status: F Test: BILIRUBIN,DIRECT; Value: < 0.1; Range: 0.0-0.2; Units: MG/DL; Status: F Test: TOTAL PROTEIN; Value: 7.6; Range: 6.4-8.2; Units: GM/DL; Status: F Test: ALBUMIN; Value: 3.9; Range: 3.2-5.2; Units: GM/DL; Status: F Test: ALBUMIN/GLOBULIN RATIO; Value: 1.05; Range: 1.00-1.93; Status: F Lab Order: TSH with Free T4; SPEC08/12/16 09:30 Test: THYROID STIMULATING HORMONE; Value: 0.508; Range: 0.358-3.740; Units: uIU/ML; Status: F Test: FREE T4; Value: 1.30; Range: 0.76-1.46; Units: NG/DL; Status: F Radiology Order: EKG-ADULT Test: EKG-ADULT REASON FOR EXAMINATION: Chest Pain; Stationary ECG Study; [facility] - ED; ; Test Date: 2016-08-12; Pat Name: LO ORTIZ Department:; Room: -; Gender: F 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 Cardiac silhouette is slightly; prominent but is probably magnified. Mediastinal silhouette is unremarkable.; There are degenerative changes of the spine.; ; IMPRESSION:; ; No evidence of acute pulmonary disease.; ; ; Signed by; Angelo Lamb MD 08/12/2016 02:17 P; Radiology Order: CT Chest Angio R/O PE Test: CT Chest Angio R/O PE REASON FOR EXAMINATION: cp; Clinical: Acute Chest pain.; ; Technique: Axial contrast enhanced images from the thoracic inlet to the upper; abdomen using 100 ml Isovue 370 intravenous contrast material with multiplanar; re-formations.; ; Findings: Satisfactory enhancement of the pulmonary vasculature is achieved.; Mild respiratory motion is appreciated. No obvious filling defects are; identified to suggest pulmonary embolus. Further evaluation of the mediastinum; demonstrates normal thoracic aorta and heart/pericardium. The bilateral lung; kelly are symmetric and essentially well aerated without consolidation, nodule; or mass lesion. Mild posterior dependent changes and trace atelectasis cannot be; excluded. No effusion. No pneumothorax. Tracheobronchial tree is patent. No; adenopathy noted. Surrounding musculoskeletal structures intact. Upper abdomen; demonstrates right renal cyst.; ; Impression:; No evidence for pulmonary embolus.; Mild posterior basilar dependent changes and trace atelectasis.; Incompletely evaluated right renal cyst.; ; ; Signed by; Eldon Babcock MD 08/12/2016 11:51 A; Outcome: 13:13 Discharge ordered by Provider. 13:47 Discharge Assessment: Patient awake, alert and oriented x 3. No cognitive and/or [facility] functional deficits noted. Patient verbalized understanding of disposition instructions. patient administered narcotics - yes. Pt provided with safe discharge. The following High Risk Discharge criteria are identified: None. Discharged to home ambulatory, with significant other. Condition: good Condition: stable Condition: improved. Discharge instructions given to patient, Instructed on discharge instructions, follow up and referral plans. medication usage, Demonstrated understanding of instructions, medications, Pt was receptive of discharge instructions/ teaching. Prescriptions given X 3. CT Study completed. Property :Personal belongings accompany Pt. 13:[address] [facility] Signatures: Dispatcher [employer] EDMS Uri Coy MD MD ml Dayana Velazquez, Reg Reg gb Jarrett Wan, Reg Reg lg Suki Vivas, MANAGER DOMESTIC MANAGER DOMESTIC ar3 Kelley Ferrari, RN RN jc4 Madhavi GarciaRN RN [facility] Elver Argueta mm15 Courtney Moreno, RN RN mk4 Chart Complete MTDD
--- NOTE | 2016-08-14 14:51 | EDDOCDS ---
Physician Documentation [facility] Name: Milena Ortiz Age: 60 yrs Sex: Female : 1955 Arrival Date: 08/12/2016 Time: 08:52 Bed 15 Private MD: Angelo Alvarenga Disposition: 08/12/16 13:13 Discharged to Home/Self Care. Impression: Palpitations, Chest pain, unspecified, Low back pain - upper back pain probable spasm. - Condition is Stable. - Discharge Instructions: Nonspecific Chest Pain, Musculoskeletal Pain, Palpitations. - Prescriptions for Ibuprofen 600 mg Oral Tablet - take 1 tablet by ORAL route every 8 hours As needed take with food; 20 tablet. [place] 5- 325 mg Oral Tablet - take 1 tablet by ORAL route every 6 hours As needed MDD: 4 tabs; 20 tablet. Cyclobenzaprine 10 mg Oral Tablet - take 1 tablet by ORAL route 3 times per day As needed; 15 tablet. - Medication Reconciliation, Local Pharmacy Hours form. - Follow up: Angelo Alvarenga MD; When: 2 - 3 days. Follow up: Ashish Salazar; When: Call to arrange an appointment. - Problem is new. - Symptoms have improved. - Notes: call to schedule close follow up appt with drs. salazar and leonel. return if worsening symptopms Historical: - Allergies: Aveloxnightmares; Pyridium (Upset stomach); Skelaxin (Upset stomach); Chlorthalidone (insomnia); Drisdol (Vomit); fluticasone (throat ulcer); - Home Meds: 1. Vitamin D Oral 2000 units daily (Last dose: 08/11/2016) 2. multivitamin Oral tab 1 tablet daily (Last dose: 08/11/2016) 3. Ambien 5 mg Oral tab 1 tab nightly as needed (Last dose: Unknown) 4. Claritin 10 mg Oral tab 1 tab once daily as needed (Last dose: Unknown) 5. Motrin 800 mg Oral tab 1 tab 3 times per day as needed (Last dose: 08/12/2016 03:00) - PMHx: hyperlipidemia; Vitamin D Deficiency; Anemia; Cancer, Ovarian; Grave's Disease; - PSHx: Hysterectomy; Tonsillectomy; - Social history: Smoking status: Patient states was never smoker of tobacco. No barriers to communication noted, The patient speaks fluent Moroccan. - Family history: Not pertinent. - : The pt / caregiver states he / she is not on anticoagulants. Home medication list is obtained from the patient. - Exposure Risk Screening:: None identified. Vital Signs: 08/12 09:08 BP 189 / 91 (auto/); mk4 09:11 BP 187 / 91; Pulse 73; Resp 20; Temp 97.2(O); Pulse Ox 96% on R/A; Weight 104.33 kg / jc4 230.01 lbs; Height 5 ft. 3 in. (160.02 cm); Pain 7/10; 09:13 Pulse 74 MON; Pulse Ox 96% ; mk4 09:29 BP 165 / 77 (auto/); mk4 09:29 Pulse 72 MON; Pulse Ox 95% ; mk4 09:38 BP 200 / 95 (auto/); mk4 09:38 Pulse 70 MON; Pulse Ox 96% ; mk4 09:53 BP 161 / 85 (auto/); mk4 09:53 Pulse 68 MON; Pulse Ox 96% ; mk4 10:08 BP 139 / 81 (auto/); mk4 10:09 Pulse 72 MON; Pulse Ox 95% ; mk4 10:23 BP 138 / 73 (auto/); mk4 10:24 Pulse 70 MON; Pulse Ox 95% ; mk4 10:38 BP 137 / 63 (auto/); mk4 10:38 Pulse 72 MON; Pulse Ox 95% ; mk4 10:52 Pulse 68 MON; Pulse Ox 93% ; cjh 10:53 BP 122 / 58 (auto/); cjh 11:07 Pulse 72 MON; Pulse Ox 94% ; Pain 2/10; cjh 11:08 BP 135 / 70 (auto/); cjh 11:52 Pulse 70 MON; Pulse Ox 95% ; cjh 11:53 BP 137 / 69 (auto/); cjh 12:07 Pulse 70 MON; Pulse Ox 93% ; cjh 12:08 BP 135 / 64 (auto/); cjh 12:22 Pulse 70 MON; Pulse Ox 93% ; cjh 12:23 BP 136 / 65 (auto/); cjh 12:37 Pulse 78 MON; Pulse Ox 95% ; cjh 12:38 BP 158 / 71 (auto/); cjh 12:52 Pulse 70 MON; Pulse Ox 94% ; cjh 12:53 BP 151 / 73 (auto/); cjh 13:07 Pulse 72 MON; Pulse Ox 97% ; cjh 13:08 BP 138 / 90 (auto/); cjh 13:22 Pulse 70 MON; Pulse Ox 98% ; cjh 13:23 BP 141 / 86 (auto/); cjh 13:34 Pulse 66 MON; Pulse Ox 98% ; cjh 13:34 BP 145 / 70 (auto/); cjh 13:47 BP 154 / 70; Pulse 74; Resp 16; Temp 96.3; Pulse Ox 98% ; Pain 0/10; cjh 09:11 Body Mass Index 40.74 (104.33 kg, 160.02 cm) jc4 MDM: 08:57 ECG WITH READING ER PHYS+CARDIAG ordered. EDMS 09:40 IV Saline Lock ordered. ml 09:40 Ondansetron 4 mg IVP once ordered. ml 09:40 morphine 4 mg IVP once; slow ivp ordered. ml 09:41 CBC with Diff Ordered. EDMS 09:41 MED Profile Ordered. EDMS 09:41 CIP Ordered. EDMS 09:41 Troponin Ordered. EDMS 09:41 Liver Profile Ordered. EDMS 09:41 TSH with Free T4 Ordered. EDMS 09:42 Chest, 1 View Ordered. EDMS 09:56 Financial registration complete. mm15 10:05 [facility] Payment Agreement was scanned into [employer] and attached to record. mm15 10:54 MED Profile Reviewed. ml 10:54 CIP Reviewed. ml 10:54 Troponin Reviewed. ml 10:54 Liver Profile Reviewed. ml 10:54 TSH with Free T4 Reviewed. ml 10:56 CT Chest Angio R/O PE Ordered. EDMS 10:58 oxyCODONE-acetaminophen 5 mg-325 mg 1 tabs PO once ordered. ml 10:58 Cyclobenzaprine 10 mg PO once ordered. ml 13:08 Chest, 1 View Reviewed. ml 13:08 CT Chest Angio R/O PE Reviewed. ml 08/13 11:07 T-Sheet-- Draft Copy was scanned into [employer] and attached to record. gb 11:08 ECG/EKG was scanned into [employer] and attached to record. gb 11:08 Radiology Report was scanned into [employer] and attached to record. gb Administered Medications: 08/12 10:23 Drug: Ondansetron 4 mg Route: IVP; Site: right antecubital; 4 10:23 Drug: morphine 4 mg [morphine 4 mg/mL intravenous cartridge (1 mL)] Route: IVP; Site: [facility] right antecubital; 11:42 Drug: oxyCODONE-acetaminophen 1 tabs [oxycodone-acetaminophen 5 mg-325 mg tablet (1 cjh tabs)] Route: PO; 12:16 Follow up: Response: Confirmed pt not driving.; No Adverse Reaction; Pain is decreased [facility] 11:42 Drug: Cyclobenzaprine 10 mg [cyclobenzaprine 10 mg tablet (1 tabs)] Route: PO; [facility] 12:16 Follow up: Response: Confirmed pt not driving.; No Adverse Reaction; Pain is decreased [facility] Signatures: Dispatcher [employer] EDUri Garcia MD MD Dayana Velazquez, Reg Reg Kelley Ferrari RN RN jc4 Madhavi Garcia RN RN [facility] Elver Argueta mm15 Courtney Moreno RN RN mk4 The chart was reviewed and I authenticate all verbal orders and agree with the evaluation and treatment provided.Attachments: 10:05 [facility] Payment Agreement mm15 08/13 11:07 T-Sheet-- Draft Copy 11:08 ECG/EKG Chart Complete MTDD
--- NOTE | 2016-08-14 14:51 | EDDOCDS ---
Physician Documentation [facility] Name: Milena Ortiz Age: 60 yrs Sex: Female : 1955 Arrival Date: 08/12/2016 Time: 08:52 Bed 15 Private MD: Angelo Alvarenga Disposition: 08/12/16 13:13 Discharged to Home/Self Care. Impression: Palpitations, Chest pain, unspecified, Low back pain - upper back pain probable spasm. - Condition is Stable. - Discharge Instructions: Nonspecific Chest Pain, Musculoskeletal Pain, Palpitations. - Prescriptions for Ibuprofen 600 mg Oral Tablet - take 1 tablet by ORAL route every 8 hours As needed take with food; 20 tablet. [place] 5- 325 mg Oral Tablet - take 1 tablet by ORAL route every 6 hours As needed MDD: 4 tabs; 20 tablet. Cyclobenzaprine 10 mg Oral Tablet - take 1 tablet by ORAL route 3 times per day As needed; 15 tablet. - Medication Reconciliation, Local Pharmacy Hours form. - Follow up: Angelo Alvarenga MD; When: 2 - 3 days. Follow up: Ashish Salazar; When: Call to arrange an appointment. - Problem is new. - Symptoms have improved. - Notes: call to schedule close follow up appt with drs. salazar and leonel. return if worsening symptopms Historical: - Allergies: Aveloxnightmares; Pyridium (Upset stomach); Skelaxin (Upset stomach); Chlorthalidone (insomnia); Drisdol (Vomit); fluticasone (throat ulcer); - Home Meds: 1. Vitamin D Oral 2000 units daily (Last dose: 08/11/2016) 2. multivitamin Oral tab 1 tablet daily (Last dose: 08/11/2016) 3. Ambien 5 mg Oral tab 1 tab nightly as needed (Last dose: Unknown) 4. Claritin 10 mg Oral tab 1 tab once daily as needed (Last dose: Unknown) 5. Motrin 800 mg Oral tab 1 tab 3 times per day as needed (Last dose: 08/12/2016 03:00) - PMHx: hyperlipidemia; Vitamin D Deficiency; Anemia; Cancer, Ovarian; Grave's Disease; - PSHx: Hysterectomy; Tonsillectomy; - Social history: Smoking status: Patient states was never smoker of tobacco. No barriers to communication noted, The patient speaks fluent [place]. - Family history: Not pertinent. - : The pt / caregiver states he / she is not on anticoagulants. Home medication list is obtained from the patient. - Exposure Risk Screening:: None identified. Vital Signs: 08/12 09:08 BP 189 / 91 (auto/); mk4 09:11 BP 187 / 91; Pulse 73; Resp 20; Temp 97.2(O); Pulse Ox 96% on R/A; Weight 104.33 kg / jc4 230.01 lbs; Height 5 ft. 3 in. (160.02 cm); Pain 7/10; 09:13 Pulse 74 MON; Pulse Ox 96% ; mk4 09:29 BP 165 / 77 (auto/); mk4 09:29 Pulse 72 MON; Pulse Ox 95% ; mk4 09:38 BP 200 / 95 (auto/); mk4 09:38 Pulse 70 MON; Pulse Ox 96% ; mk4 09:53 BP 161 / 85 (auto/); mk4 09:53 Pulse 68 MON; Pulse Ox 96% ; mk4 10:08 BP 139 / 81 (auto/); mk4 10:09 Pulse 72 MON; Pulse Ox 95% ; mk4 10:23 BP 138 / 73 (auto/); mk4 10:24 Pulse 70 MON; Pulse Ox 95% ; mk4 10:38 BP 137 / 63 (auto/); mk4 10:38 Pulse 72 MON; Pulse Ox 95% ; mk4 10:52 Pulse 68 MON; Pulse Ox 93% ; cjh 10:53 BP 122 / 58 (auto/); cjh 11:07 Pulse 72 MON; Pulse Ox 94% ; Pain 2/10; cjh 11:08 BP 135 / 70 (auto/); cjh 11:52 Pulse 70 MON; Pulse Ox 95% ; cjh 11:53 BP 137 / 69 (auto/); cjh 12:07 Pulse 70 MON; Pulse Ox 93% ; cjh 12:08 BP 135 / 64 (auto/); cjh 12:22 Pulse 70 MON; Pulse Ox 93% ; cjh 12:23 BP 136 / 65 (auto/); cjh 12:37 Pulse 78 MON; Pulse Ox 95% ; cjh 12:38 BP 158 / 71 (auto/); cjh 12:52 Pulse 70 MON; Pulse Ox 94% ; cjh 12:53 BP 151 / 73 (auto/); cjh 13:07 Pulse 72 MON; Pulse Ox 97% ; cjh 13:08 BP 138 / 90 (auto/); cjh 13:22 Pulse 70 MON; Pulse Ox 98% ; cjh 13:23 BP 141 / 86 (auto/); cjh 13:34 Pulse 66 MON; Pulse Ox 98% ; cjh 13:34 BP 145 / 70 (auto/); cjh 13:47 BP 154 / 70; Pulse 74; Resp 16; Temp 96.3; Pulse Ox 98% ; Pain 0/10; cjh 09:11 Body Mass Index 40.74 (104.33 kg, 160.02 cm) jc4 MDM: 08:57 ECG WITH READING ER PHYS+CARDIAG ordered. EDMS 09:40 IV Saline Lock ordered. ml 09:40 Ondansetron 4 mg IVP once ordered. ml 09:40 morphine 4 mg IVP once; slow ivp ordered. ml 09:41 CBC with Diff Ordered. EDMS 09:41 MED Profile Ordered. EDMS 09:41 CIP Ordered. EDMS 09:41 Troponin Ordered. EDMS 09:41 Liver Profile Ordered. EDMS 09:41 TSH with Free T4 Ordered. EDMS 09:42 Chest, 1 View Ordered. EDMS 09:56 Financial registration complete. mm15 10:05 [facility] Payment Agreement was scanned into [employer] and attached to record. mm15 10:54 MED Profile Reviewed. ml 10:54 CIP Reviewed. ml 10:54 Troponin Reviewed. ml 10:54 Liver Profile Reviewed. ml 10:54 TSH with Free T4 Reviewed. ml 10:56 CT Chest Angio R/O PE Ordered. EDMS 10:58 oxyCODONE-acetaminophen 5 mg-325 mg 1 tabs PO once ordered. ml 10:58 Cyclobenzaprine 10 mg PO once ordered. ml 13:08 Chest, 1 View Reviewed. ml 13:08 CT Chest Angio R/O PE Reviewed. ml 08/13 11:07 T-Sheet-- Draft Copy was scanned into [employer] and attached to record. gb 11:08 ECG/EKG was scanned into [employer] and attached to record. gb 11:08 Radiology Report was scanned into [employer] and attached to record. gb Administered Medications: 08/12 10:23 Drug: Ondansetron 4 mg Route: IVP; Site: right antecubital; 4 10:23 Drug: morphine 4 mg [morphine 4 mg/mL intravenous cartridge (1 mL)] Route: IVP; Site: [facility] right antecubital; 11:42 Drug: oxyCODONE-acetaminophen 1 tabs [oxycodone-acetaminophen 5 mg-325 mg tablet (1 cjh tabs)] Route: PO; 12:16 Follow up: Response: Confirmed pt not driving.; No Adverse Reaction; Pain is decreased [facility] 11:42 Drug: Cyclobenzaprine 10 mg [cyclobenzaprine 10 mg tablet (1 tabs)] Route: PO; [facility] 12:16 Follow up: Response: Confirmed pt not driving.; No Adverse Reaction; Pain is decreased [facility] Signatures: Dispatcher [employer] EDUri Garcia MD MD Dayana Velazquez, Reg Reg Kelley Ferrari RN RN jc4 Madhavi Garcia RN RN [facility] Elver Argueta mm15 Courtney Moreno RN RN mk4 The chart was reviewed and I authenticate all verbal orders and agree with the evaluation and treatment provided.Attachments: 10:05 [facility] Payment Agreement mm15 08/13 11:07 T-Sheet-- Draft Copy 11:08 ECG/EKG Chart Complete MTDD
== END 2016-08-12 13:50 | disposition home or self-care (01) ==
LOC: M ED 08:52
DX: M54.9 Dorsalgia, unspecified (principal); R07.9 Chest pain, unspecified; E78.5 Hyperlipidemia, unspecified; E55.9 Vitamin D deficiency, unspecified; D64.9 Anemia, unspecified; E05.00 Thyrotoxicosis with diffuse goiter without thyrotoxic crisis or storm; Z85.43 Personal history of malignant neoplasm of ovary; Z79.899 Other long term (current) drug therapy; Z88.1 Allergy status to other antibiotic agents; Z88.6 Allergy status to analgesic agent; Z88.8 Allergy status to other drugs, medicaments and biological substances
CPT/HCPCS: 36415; 71010; 71275; 80048; 80076; 82550; 82553; 84439; 84443; 85025; 93005; 96374; 96375; 99285; J2405; Q9967

== ENCOUNTER → 2016-08-28 | Outpatient (CLI) | payer BC | LOC: M WUC 16:17 | PROVIDERS: ATTEND Internal Medicine Endocrinology, Diabetes & Metabolism | DX: E05.00 Thyrotoxicosis with diffuse goiter without thyrotoxic crisis or storm (principal) ==

== ENCOUNTER → 2016-09-01 | Outpatient (CLI) | payer BC | LOC: M WUC 09:04 | PROVIDERS: ATTEND Family Medicine | DX: E78.2 Mixed hyperlipidemia (principal) ==

== ENCOUNTER → 2016-11-07 | Outpatient (CLI) | payer BC | LOC: M WUC 14:18 | PROVIDERS: ATTEND Internal Medicine Endocrinology, Diabetes & Metabolism | DX: E05.00 Thyrotoxicosis with diffuse goiter without thyrotoxic crisis or storm (principal) ==

== ENCOUNTER → 2017-01-15 | Outpatient (CLI) | payer BC ==
[~2017-01-15] MED LIST changes: -LEVA750T PO; +LEVA750T7 PO
[2017-01-15 20:34] LABS: FREE T4 3.11 NG/DL (0.76-1.46)
== END ==
LOC: M WUC 16:45
PROVIDERS: ATTEND Internal Medicine Endocrinology, Diabetes & Metabolism
DX: E05.00 Thyrotoxicosis with diffuse goiter without thyrotoxic crisis or storm (principal)

== ENCOUNTER → 2017-03-05 | Outpatient (REF) | payer BC ==
[2017-03-05 20:12] LABS: ANION GAP 7 MEQ/L (8-16); BLOOD UREA NITROGEN 8 MG/DL (7-18); CALCIUM LEVEL 9.2 MG/DL (8.8-10.2); CARBON DIOXIDE LEVEL 30 MEQ/L (21-32); CHLORIDE LEVEL 106 MEQ/L (98-107); CREATININE FOR GFR 0.67 MG/DL (0.55-1.02); GLOMERULAR FILTRATION RATE > 60.0 (>45); GLUCOSE, FASTING 97 MG/DL (80-110); POTASSIUM SERUM 4.2 MEQ/L (3.5-5.1); SODIUM LEVEL 143 MEQ/L (136-145)
[2017-03-05 20:27] LABS: BASO % 0.3 % (0.0-1.0); EOS # 0.2 K/mm3 (0.0-0.50); EOS % 2.9 % (0.0-3.0); LARGE UNSTAINED CELL # 0.1 K/mm3 (0.0-0.4); LARGE UNSTAINED CELL % 2.4 % (0.0-4.0); LYMPH # 1.5 K/mm3 (1.5-4.5); LYMPH % 29.1 % (24.0-44.0); MEAN CORPUSCULAR HEMOGLOBIN 28.8 pg (27.0-33.0); MEAN CORPUSCULAR HGB CONC 34.6 g/dl (32.0-36.5); MEAN CORPUSCULAR VOLUME 83.1 fl (80.0-96.0); MONO # 0.3 K/mm3 (0.0-0.8); MONO % 5.6 % (0.0-5.0); NEUTROPHILS % 59.6 % (36.0-66.0); PLATELET COUNT, AUTOMATED 279 k/mm3 (150-450); RED CELL DISTRIBUTION WIDTH 12.8 % (11.5-14.5)
== END ==
LOC: M SFHCADAM 13:46
PROVIDERS: ATTEND Family Medicine
DX: B37.0 Candidal stomatitis (principal); T88.7XXA Unspecified adverse effect of drug or medicament, initial encounter

== ENCOUNTER → 2017-03-21 | Outpatient (CLI) | payer BC ==
[2017-03-21 17:06] LABS: FREE T4 1.21 NG/DL (0.76-1.46)
== END ==
LOC: M WUC 12:45
PROVIDERS: ATTEND Internal Medicine Endocrinology, Diabetes & Metabolism
DX: E05.00 Thyrotoxicosis with diffuse goiter without thyrotoxic crisis or storm (principal)

== ENCOUNTER → 2017-05-29 | Outpatient (CLI) | payer BC ==
--- NOTE | 2017-05-29 17:05 | REP ---
Chest x-ray: Two views: History: Encounter for other procedure. Comparison study: August 12, 2016. Findings: There is a mild dextroconvex thoracic curve and degenerative disc changes are noted. The lungs are well inflated and clear. The pleural angles are sharp. Heart size is normal. Pulmonary vasculature is not increased. No significant bony abnormality is seen. Impression: No active disease. Signed by Brett Pedroza MD 05/30/2017 09:37 A
== END ==
LOC: M ADAMS 16:14
PROVIDERS: ATTEND Family Medicine
DX: Z86.39 Personal history of other endocrine, nutritional and metabolic disease (principal)

== ENCOUNTER → 2017-05-29 | Outpatient (REF) | payer BC ==
[2017-05-29 19:39] LABS: BASO % 0.4 % (0.0-1.0); EOS # 0.1 10^3/uL (0.0-0.50); IMMATURE GRANULOCYTE % 0.2 % (0-0); LYMPH # 1.9 10^3/uL (1.5-4.5); LYMPH % 33.7 % (24.0-44.0); MEAN CORPUSCULAR HEMOGLOBIN 28.1 pg (27.0-33.0); MEAN CORPUSCULAR VOLUME 85.2 fl (80.0-96.0); MONO # 0.4 10^3/uL (0.0-0.8); NEUTROPHILS # 3.1 10^3/uL (1.8-7.7); NEUTROPHILS % 55.7 % (36.0-66.0); PLATELET COUNT, AUTOMATED 283 10^3/uL (150-450); RED CELL DISTRIBUTION WIDTH 13.2 % (11.5-14.5); WHITE BLOOD COUNT 5.5 10^3/uL (4.0-10.0)
[2017-05-29 19:49] LABS: INR 0.96
[2017-05-29 20:14] LABS: ALBUMIN 3.9 GM/DL (3.2-5.2); ALBUMIN/GLOBULIN RATIO 1.11 (1.00-1.93); ALKALINE PHOSPHATASE 99 U/L (45-117); ALT/SGPT 39 U/L (12-78); ANION GAP 6 MEQ/L (8-16); AST/SGOT 24 U/L (7-37); BILIRUBIN,TOTAL 0.4 MG/DL (0.2-1.0); BLOOD UREA NITROGEN 11 MG/DL (7-18); CALCIUM LEVEL 8.9 MG/DL (8.8-10.2); CARBON DIOXIDE LEVEL 29 MEQ/L (21-32); CHLORIDE LEVEL 107 MEQ/L (98-107); CREATININE FOR GFR 0.81 MG/DL (0.55-1.02); GLOMERULAR FILTRATION RATE > 60.0 (>45); GLUCOSE, FASTING 90 MG/DL (80-110); POTASSIUM SERUM 4.2 MEQ/L (3.5-5.1); SODIUM LEVEL 142 MEQ/L (136-145); TOTAL PROTEIN 7.4 GM/DL (6.4-8.2)
== END ==
LOC: M SFHCADAM 15:51
PROVIDERS: ATTEND Family Medicine
DX: Z01.818 Encounter for other preprocedural examination (principal); I10 Essential (primary) hypertension

== ENCOUNTER → 2017-06-10 | Outpatient (CLI) | payer BC | LOC: M WUC 11:48 | PROVIDERS: ATTEND Registered Nurse | DX: E83.51 Hypocalcemia (principal) ==

== ENCOUNTER → 2017-06-16 | Outpatient (CLI) | payer BC ==
[2017-06-16 20:48] LABS: FREE T4 0.42 NG/DL (0.76-1.46)
== END ==
LOC: M LAB 20:02
PROVIDERS: ATTEND Internal Medicine Endocrinology, Diabetes & Metabolism
DX: E05.00 Thyrotoxicosis with diffuse goiter without thyrotoxic crisis or storm (principal)

== ENCOUNTER → 2017-06-17 | Outpatient (CLI) | payer BC | LOC: M WUC 14:08 | PROVIDERS: ATTEND Registered Nurse | DX: E83.51 Hypocalcemia (principal) ==

== ENCOUNTER → 2017-06-24 | Outpatient (CLI) | payer BC ==
[2017-06-24 13:46] LABS: CALCIUM LEVEL 8.6 MG/DL (8.8-10.2); CREATININE FOR GFR 1.02 MG/DL (0.55-1.02); GLOMERULAR FILTRATION RATE 58.8 (>45); POTASSIUM SERUM 4.1 MEQ/L (3.5-5.1)
== END ==
LOC: M WUC 12:16
PROVIDERS: ATTEND Internal Medicine Endocrinology, Diabetes & Metabolism
DX: E83.51 Hypocalcemia (principal)

== ENCOUNTER → 2017-08-19 | Outpatient (CLI) | payer BC ==
[2017-08-19 20:11] LABS: FREE T4 0.79 NG/DL (0.76-1.46)
== END ==
LOC: M WUC 16:43
DX: E89.0 Postprocedural hypothyroidism (principal)
CPT/HCPCS: 84443

== ENCOUNTER → 2019-08-25 | Outpatient (CLI) | payer BC ==
[2019-08-25 20:43] LABS: ALBUMIN 4.2 GM/DL (3.2-5.2); PERCENT SATURATION 10.5 % (13.2-45.0)
== END ==
LOC: M WUC 17:33
PROVIDERS: ATTEND Orthopaedic Surgery
DX: Z01.818 Encounter for other preprocedural examination (principal); M25.569 Pain in unspecified knee; M17.12 Unilateral primary osteoarthritis, left knee; D64.9 Anemia, unspecified

== ENCOUNTER → 2019-08-25 | Outpatient (CLI) | payer BC ==
[2019-08-25 20:48] LABS: THYROID STIMULATING HORMONE 0.311 uIU/ML (0.358-3.740)
== END ==
LOC: M WUC 17:28
PROVIDERS: ATTEND Family Medicine
DX: E05.90 Thyrotoxicosis, unspecified without thyrotoxic crisis or storm (principal); Z86.39 Personal history of other endocrine, nutritional and metabolic disease

== ENCOUNTER → 2019-11-09 | Outpatient (REF) | payer BC ==
[~2019-11-09] MED LIST changes: +METO1TAB7 PO; +PROT1TAB2 PO; +THYR60TA PO; +ZOFR8TAB24 PO
[2019-11-09 13:16] LABS: HEMOGLOBIN 14.2 g/dl (12.0-15.5); MEAN CORPUSCULAR HEMOGLOBIN 29.8 pg (27.0-33.0); MEAN CORPUSCULAR HGB CONC 33.8 g/dl (32.0-36.5); MEAN CORPUSCULAR VOLUME 88.1 fl (80.0-96.0); PLATELET COUNT, AUTOMATED 288 10^3/uL (150-450); RED BLOOD COUNT 4.77 10^6/uL (4.00-5.40); WHITE BLOOD COUNT 6.3 10^3/uL (4.0-10.0)
[2019-11-09 13:40] LABS: ALBUMIN 3.9 GM/DL (3.2-5.2); ALT/SGPT 16 U/L (12-78); BILIRUBIN,TOTAL 0.5 MG/DL (0.2-1.0); BLOOD UREA NITROGEN 9 MG/DL (7-18); CALCIUM LEVEL 9.6 MG/DL (8.8-10.2); CARBON DIOXIDE LEVEL 29 MEQ/L (21-32); CHLORIDE LEVEL 105 MEQ/L (98-107); CREATININE FOR GFR 0.86 MG/DL (0.55-1.30); FERRITIN 57 NG/ML (8-252); FOLATE 8.1 NG/ML (>5.4); FREE T4 0.95 NG/DL (0.76-1.46); GLOMERULAR FILTRATION RATE > 60.0 (>45); GLUCOSE, FASTING 110 MG/DL (70-100); IRON (FE) 67 UG/DL (50-170); PERCENT SATURATION 22.2 % (13.2-45.0); POTASSIUM SERUM 4.7 MEQ/L (3.5-5.1); SODIUM LEVEL 140 MEQ/L (136-145); TOTAL IRON BINDING CAPACITY 302 UG/DL (250-450); VITAMIN B12 LEVEL 253 PG/ML (247-911)
== END ==
LOC: M SFHCADAM 10:21
PROVIDERS: ATTEND Family Medicine
DX: D50.9 Iron deficiency anemia, unspecified (principal); Z86.39 Personal history of other endocrine, nutritional and metabolic disease; R20.8 Other disturbances of skin sensation

== ENCOUNTER 2020-01-07 08:04 | Emergency (ER) | payer BC ==
[~2020-01-07] VITALS: Ht 162.6 cm; Wt 101.1 kg
[~2020-01-07 08:04] MED LIST changes: -METO1TAB7 PO; -PROT1TAB2 PO; -THYR60TA PO; -ZOFR8TAB24 PO
[2020-01-07] MEDS ORDERED: THYR60TA PO (08:14)
[2020-01-07] MEDS ORDERED: METO1TAB7 PO (08:14)
[2020-01-07] MEDS ORDERED: NS 1,000 ML IV ONE (08:45)
[2020-01-07 09:12] LABS: BASO % 0.3 % (0.0-1.0); EOS # 0.1 10^3/uL (0.0-0.5); EOS % 1.8 % (0.0-3.0); HEMATOCRIT 40.3 % (36.0-47.0); HEMOGLOBIN 13.4 g/dl (12.0-15.5); LYMPH # 1.5 10^3/uL (1.5-5.0); LYMPH % 24.2 % (24.0-44.0); MEAN CORPUSCULAR HEMOGLOBIN 28.6 pg (27.0-33.0); MEAN CORPUSCULAR HGB CONC 33.3 g/dl (32.0-36.5); MEAN CORPUSCULAR VOLUME 85.9 fl (80.0-96.0); MONO # 0.3 10^3/uL (0.0-0.8); MONO % 5.4 % (0.0-5.0); NEUTROPHILS # 4.2 10^3/uL (1.5-8.5); NEUTROPHILS % 68.1 % (36.0-66.0); PLATELET COUNT, AUTOMATED 260 10^3/uL (150-450); RED BLOOD COUNT 4.69 10^6/uL (4.00-5.40); WHITE BLOOD COUNT 6.2 10^3/uL (4.0-10.0)
[2020-01-07] MEDS ORDERED: ONDANSETRON 4MG/2ML VIAL IV ONE (09:30)
[2020-01-07 11:36] LABS: ALBUMIN 3.9 GM/DL (3.2-5.2); ALT/SGPT 19 U/L (12-78); BILIRUBIN,DIRECT < 0.1 MG/DL (0.0-0.2); BILIRUBIN,TOTAL 0.6 MG/DL (0.2-1.0); CK-MB VALUE MASS < 1.0 NG/ML (<3.6); CPK CREATINE PHOSPHOKINASE 71 U/L (26-192); LIPASE 204 U/L (73-393); MB/CK RELATIVE INDEX 1.41 (< OR =4); TOTAL PROTEIN 7.5 GM/DL (6.4-8.2); TROPONIN I < 0.02 NG/ML (< 0.10)
[2020-01-07] MEDS ORDERED: ZOFR8TAB24 PO (12:12)
[2020-01-07] MEDS ORDERED: PROT1TAB2 PO (12:12)
[2020-01-07 12:26] VITALS: BP 164/81
== END 2020-01-07 12:29 | disposition home or self-care (01) ==
LOC: M ED 08:04
DX: R10.9 Unspecified abdominal pain (principal); R11.0 Nausea; R19.7 Diarrhea, unspecified; I10 Essential (primary) hypertension; K21.9 Gastro-esophageal reflux disease without esophagitis; K58.0 Irritable bowel syndrome with diarrhea; E05.00 Thyrotoxicosis with diffuse goiter without thyrotoxic crisis or storm; Z78.0 Asymptomatic menopausal state; Z79.899 Other long term (current) drug therapy; Z86.19 Personal history of other infectious and parasitic diseases; Z88.1 Allergy status to other antibiotic agents; Z88.8 Allergy status to other drugs, medicaments and biological substances; Z91.040 Latex allergy status
CPT/HCPCS: 80047; 80076; 81001; 82550; 82553; 83605; 83690; 84484; 85025; 87507; 96361; 96374; 99284; J2405

== ENCOUNTER → 2020-01-09 | Outpatient (CLI) | payer BC ==
[~2020-01-09] MED LIST changes: +METO1TAB7 PO; +PROT1TAB2 PO; +THYR60TA PO; +ZOFR8TAB24 PO
[2020-01-09 16:42] LABS: BLOOD UREA NITROGEN 7 MG/DL (7-18); CALCIUM LEVEL 8.8 MG/DL (8.8-10.2); CARBON DIOXIDE LEVEL 26 MEQ/L (21-32); CHLORIDE LEVEL 109 MEQ/L (98-107); CREATININE FOR GFR 0.85 MG/DL (0.55-1.30); FREE T4 1.06 NG/DL (0.76-1.46); GLOMERULAR FILTRATION RATE > 60.0 (>45); GLUCOSE, FASTING 86 MG/DL (70-100); POTASSIUM SERUM 3.9 MEQ/L (3.5-5.1); SODIUM LEVEL 143 MEQ/L (136-145); THYROID STIMULATING HORMONE 0.108 uIU/ML (0.358-3.740)
[2020-01-10 12:33] LABS: TOTAL 25(OH) VITAMIN D 27.2 NG/ML (30.0-100.0)
== END ==
LOC: M WUC 13:58
PROVIDERS: ATTEND Internal Medicine Endocrinology, Diabetes & Metabolism
DX: E55.9 Vitamin D deficiency, unspecified (principal); I10 Essential (primary) hypertension; E89.0 Postprocedural hypothyroidism

== ENCOUNTER → 2020-01-13 | Outpatient (CLI) | payer SELFPAY | LOC: M LABSMTC 13:32 | PROVIDERS: ATTEND Pediatrics | DX: Z03.818 Encounter for observation for suspected exposure to other biological agents ruled out (principal); Z11.59 Encounter for screening for other viral diseases ==

== ENCOUNTER → 2020-03-10 | Outpatient (CLI) | payer BC ==
[2020-03-10 21:13] LABS: ALBUMIN 3.9 GM/DL (3.2-5.2); PERCENT SATURATION 14.3 % (13.2-45.0)
== END ==
LOC: M WUC 16:32
PROVIDERS: ATTEND Orthopaedic Surgery
DX: Z01.818 Encounter for other preprocedural examination (principal); D63.8 Anemia in other chronic diseases classified elsewhere; M25.569 Pain in unspecified knee; M79.12 Myalgia of auxiliary muscles, head and neck

== ENCOUNTER → 2020-03-15 | Outpatient (REF) | payer BC ==
[2020-03-15 18:57] LABS: HEMATOCRIT 42.9 % (36.0-47.0); MEAN CORPUSCULAR HEMOGLOBIN 28.7 pg (27.0-33.0); MEAN CORPUSCULAR HGB CONC 32.6 g/dl (32.0-36.5); MEAN CORPUSCULAR VOLUME 88.1 fl (80.0-96.0); PLATELET COUNT, AUTOMATED 324 10^3/uL (150-450); RED BLOOD COUNT 4.87 10^6/uL (4.00-5.40); WHITE BLOOD COUNT 6.9 10^3/uL (4.0-10.0)
[2020-03-15 20:05] LABS: BLOOD UREA NITROGEN 7 MG/DL (7-18); CALCIUM LEVEL 9.4 MG/DL (8.8-10.2); CARBON DIOXIDE LEVEL 30 MEQ/L (21-32); CHLORIDE LEVEL 104 MEQ/L (98-107); GLOMERULAR FILTRATION RATE > 60.0 (>45); GLUCOSE, FASTING 87 MG/DL (70-100); POTASSIUM SERUM 4.1 MEQ/L (3.5-5.1); SODIUM LEVEL 140 MEQ/L (136-145)
== END ==
LOC: M SFHCADAM 17:06
PROVIDERS: ATTEND Physician Assistant
DX: Z01.818 Encounter for other preprocedural examination (principal); M17.9 Osteoarthritis of knee, unspecified

== ENCOUNTER → 2020-03-16 | Outpatient (CLI) | payer BC ==
[2020-03-16 20:10] LABS: BLOOD UREA NITROGEN 9 MG/DL (7-18); CALCIUM LEVEL 8.5 MG/DL (8.8-10.2); CARBON DIOXIDE LEVEL 28 MEQ/L (21-32); CHLORIDE LEVEL 106 MEQ/L (98-107); CREATININE FOR GFR 0.92 MG/DL (0.55-1.30); FREE T4 0.87 NG/DL (0.76-1.46); GLOMERULAR FILTRATION RATE > 60.0 (>45); GLUCOSE, FASTING 110 MG/DL (70-100); POTASSIUM SERUM 3.7 MEQ/L (3.5-5.1); SODIUM LEVEL 141 MEQ/L (136-145); THYROID STIMULATING HORMONE 0.163 uIU/ML (0.358-3.740)
[2020-03-16 20:14] LABS: TOTAL 25(OH) VITAMIN D 26.3 NG/ML (30.0-100.0)
== END ==
LOC: M WUC 15:31
PROVIDERS: ATTEND Internal Medicine Endocrinology, Diabetes & Metabolism
DX: E55.9 Vitamin D deficiency, unspecified (principal); E66.09 Other obesity due to excess calories; Z86.39 Personal history of other endocrine, nutritional and metabolic disease; Z68.38 Body mass index [BMI] 38.0-38.9, adult

== ENCOUNTER → 2020-04-21 | Outpatient (CLI) | payer BC ==
[2020-04-21 18:52] LABS: HEMATOCRIT 36.5 % (36.0-47.0); HEMOGLOBIN 11.6 g/dl (12.0-15.5); MEAN CORPUSCULAR HEMOGLOBIN 28.5 pg (27.0-33.0); MEAN CORPUSCULAR HGB CONC 31.8 g/dl (32.0-36.5); MEAN CORPUSCULAR VOLUME 89.7 fl (80.0-96.0); PLATELET COUNT, AUTOMATED 355 10^3/uL (150-450); RED BLOOD COUNT 4.07 10^6/uL (4.00-5.40); WHITE BLOOD COUNT 7.3 10^3/uL (4.0-10.0)
== END ==
LOC: M LAB 16:25
PROVIDERS: ATTEND Orthopaedic Surgery
DX: D64.9 Anemia, unspecified (principal); Z98.890 Other specified postprocedural states

== ENCOUNTER → 2020-04-27 | Outpatient (CLI) | payer SELFPAY | LOC: M LABSMTC 12:22 | PROVIDERS: ATTEND Pediatrics | DX: Z11.59 Encounter for screening for other viral diseases (principal); Z20.828 Contact with and (suspected) exposure to other viral communicable diseases ==

== ENCOUNTER → 2020-05-06 | Outpatient (CLI) | payer SELFPAY | LOC: M LABSMTC 11:02 | PROVIDERS: ATTEND Pediatrics | DX: Z20.828 Contact with and (suspected) exposure to other viral communicable diseases (principal) ==

== ENCOUNTER → 2020-05-18 | Outpatient (CLI) | payer SELFPAY | LOC: M LABSMTC 13:27 | PROVIDERS: ATTEND Pediatrics | DX: Z20.828 Contact with and (suspected) exposure to other viral communicable diseases (principal) ==

== ENCOUNTER → 2020-09-21 | Outpatient (REF) | payer OTHER ==
[2020-09-21 13:07] LABS: BASO % 0.4 % (0.0-1.0); EOS # 0.1 10^3/uL (0.0-0.5); EOS % 2.5 % (0.0-3.0); HEMATOCRIT 41.5 % (36.0-47.0); HEMOGLOBIN 13.5 g/dl (12.0-15.5); LYMPH # 1.6 10^3/uL (1.5-5.0); MEAN CORPUSCULAR HEMOGLOBIN 28.8 pg (27.0-33.0); MEAN CORPUSCULAR HGB CONC 32.5 g/dl (32.0-36.5); MEAN CORPUSCULAR VOLUME 88.5 fl (80.0-96.0); MONO # 0.4 10^3/uL (0.0-0.8); MONO % 6.7 % (2.0-8.0); NEUTROPHILS # 3.2 10^3/uL (1.5-8.5); NEUTROPHILS % 60.2 % (36.0-66.0); PLATELET COUNT, AUTOMATED 238 10^3/uL (150-450); RED BLOOD COUNT 4.69 10^6/uL (4.00-5.40); WHITE BLOOD COUNT 5.2 10^3/uL (4.0-10.0)
[2020-09-21 13:19] LABS: HEMOGLOBIN A1c 5.4 %
[2020-09-21 13:40] LABS: ALBUMIN 3.9 GM/DL (3.2-5.2); ALT/SGPT 16 U/L (12-78); BILIRUBIN,TOTAL 0.5 MG/DL (0.2-1.0); BLOOD UREA NITROGEN 11 MG/DL (7-18); CALCIUM LEVEL 9.1 MG/DL (8.8-10.2); CARBON DIOXIDE LEVEL 29 MEQ/L (21-32); CHLORIDE LEVEL 106 MEQ/L (98-107); CHOLESTEROL LEVEL 266 MG/DL (<200); CHOLESTEROL RISK RATIO 4.156 (<5); CREATININE FOR GFR 0.76 MG/DL (0.55-1.30); FERRITIN 59 NG/ML (8-252); FOLATE 8.5 NG/ML (>5.4); FREE T4 0.87 NG/DL (0.76-1.46); GLOMERULAR FILTRATION RATE > 60.0 (>45); GLUCOSE, FASTING 99 MG/DL (70-100); HDL CHOLESTEROL 64 MG/DL (>40); IRON (FE) 63 UG/DL (50-170); LDL CHOLESTEROL 179 MG/DL (<100); NON-HDL-C 202 MG/DL; PERCENT SATURATION 19.7 % (13.2-45.0); POTASSIUM SERUM 4.5 MEQ/L (3.5-5.1); SODIUM LEVEL 139 MEQ/L (136-145); THYROID STIMULATING HORMONE 0.805 uIU/ML (0.358-3.740); TOTAL IRON BINDING CAPACITY 319 UG/DL (250-450); TOTAL PROTEIN 7.3 GM/DL (6.4-8.2); TRIGLYCERIDES LEVEL 116 MG/DL (<150); VITAMIN B12 LEVEL 495 PG/ML (247-911)
== END ==
LOC: M SFHCADAM 09:50
PROVIDERS: ATTEND Family Medicine
DX: D50.9 Iron deficiency anemia, unspecified (principal); R53.83 Other fatigue; E05.90 Thyrotoxicosis, unspecified without thyrotoxic crisis or storm; R06.00 Dyspnea, unspecified; E78.2 Mixed hyperlipidemia; E74.9 Disorder of carbohydrate metabolism, unspecified

== ENCOUNTER → 2020-09-21 | Outpatient (CLI) | payer OTHER ==
--- NOTE | 2020-09-21 11:30 | REP ---
INDICATION: DRUMMOND. COMPARISON: PA and lateral chest dated 06/10/2014 and portable chest dated 08/12/2016. TECHNIQUE: Upright PA and lateral chest. FINDINGS: The lung kelly are clear. Cardiac size is normal. The elle, mediastinum and skeletal structures are unremarkable. IMPRESSION: Essentially negative PA and lateral chest <Electronically signed by Angelo Garcia > 09/21/20 1127
== END ==
LOC: M ADAMS 10:50
PROVIDERS: ATTEND Family Medicine
DX: R06.00 Dyspnea, unspecified (principal)

== ENCOUNTER → 2020-10-12 | Outpatient (CLI) | payer OTHER ==
--- NOTE | 2020-10-12 11:15 | DEXAMM ---
INDICATION: Z13.820 [facility]. COMPARISON: 08/18/2014 as well as other prior exams. TECHNIQUE: Bone density was measured using dual-energy x-ray absorptiometry (DEXA). FINDINGS: AP SPINE L1-L4 BMD 1.378 g/cm2 Young Adult T-Score 1.5 Age Matched Z-Score 3.0. LT FEMUR, TOTAL BMD 1.122 g/cm2 Young Adult T-Score 0.9 Age Matched Z-Score 2.0. LT NECK BMD 1.033 g/cm2 Young Adult T-Score 0.0 Age Matched Z-Score 1.4. RT FEMUR, TOTAL BMD 1.110 g/cm2 Young Adult T-Score 0.8 Age Matched Z-Score 1.9. RT NECK BMD 1.004 g/cm2 Young Adult T-Score -0.2 Age Matched Z-Score 1.2. IMPRESSION: There is normal bone density of the spine. There is normal bone density of the left hip. There is normal bone density of the right hip. The density of the spine has increased 8.0% since the initial exam on 03/20/2006. The density of the spine increased 9.1% since most recent exam on 08/18/2014. The density of the left hip has decreased 3.9% since initial exam on 03/20/2006. The density of the left hip has increased 2.5% since most recent exam on 08/18/2014. The density of the right hip has increased 1.9% since the initial exam on 03/20/2006. The density of the right hip has increased 6.8% since the most recent exam on 08/18/2014. FOLLOW-UP: Recommendation for the next bone density exam: 5 years. <Electronically signed by Angelo Lamb > 10/12/20 1115
== END ==
LOC: M WHC 10:21
PROVIDERS: ATTEND Family Medicine
DX: Z13.820 Encounter for screening for osteoporosis (principal)

== ENCOUNTER → 2020-10-12 | Outpatient (CLI) | payer OTHER ==
--- NOTE | 2020-10-13 10:04 | ECHO ---
DATE OF PROCEDURE: 10/12/2020 Age: 64 Gender: Female Height: 162 Weight: 104 kg REFERRING PHYSICIAN: SHEKHAR Edgar INDICATION: Dyspnea. MEASUREMENTS: IVS 1.0 cm LV 4.7 cm LVPW 1.1 cm LA 3.5 cm Aorta 2.9 cm IVC 2.0 cm Mitral E wave velocity 75 cm/s Mitral A wave 96 cm/s E prime septal 7.0 cm/s E prime lateral 7.9 cm/s FINDINGS: This study is of good technical quality. The patient is in sinus rhythm. The left ventricle has normal size and systolic function. Estimated LVEF 65% to 70%. No segmental wall motion abnormalities are appreciated. Right ventricle also appears to have normal size and systolic function. Both atria appear normal. Aortic, mitral and tricuspid valves were reasonably well seen and appear normal. Pulmonic valve was not well seen. No pericardial effusion is noted. Inferior vena cava is in upper limits of normal size, but almost completely collapses with inspiration indicative of normal mildly elevated central venous pressure. The aortic root and aortic arch appear normal. Abdominal aorta was not well seen. Doppler interrogation of the aortic valve reveals no stenosis or insufficiency. There is trace mitral insufficiency. Tricuspid valve is functionally competent. Mitral inflow pattern and tissue Doppler imaging of the mitral annulus revealed grade 1 diastolic dysfunction. CONCLUSIONS: 1. Study is of good technical quality, underlying sinus rhythm. 2. Normal LV size and normal LV systolic function, estimated LVEF 65% to 70%. Grade 1 diastolic dysfunction. 3. Normal RV size and systolic function. 4. No significant valvular disease. 5. Normal mildly elevated central venous pressure, unable to estimate pulmonary artery pressure. 6. Global longitudinal strain negative 19.2% (normal value). 7. No obvious abnormality to explain dyspnea. MTDD
== END ==
LOC: M CARPUL 08:30
PROVIDERS: ATTEND Physician Assistant
DX: R06.00 Dyspnea, unspecified (principal); I11.9 Hypertensive heart disease without heart failure

== ENCOUNTER → 2020-11-11 | Outpatient (CLI) | payer SELFPAY | LOC: M LABSMTC 11:01 | PROVIDERS: ATTEND Pediatrics | DX: Z20.822 Contact with and (suspected) exposure to COVID-19 (principal) ==

== ENCOUNTER → 2021-01-18 | Outpatient (CLI) | payer OTHER ==
[2021-01-18 17:02] LABS: BLOOD UREA NITROGEN 10 MG/DL (7-18); CARBON DIOXIDE LEVEL 25 MEQ/L (21-32); CHLORIDE LEVEL 107 MEQ/L (98-107); CREATININE FOR GFR 0.81 MG/DL (0.55-1.30); FREE T4 0.81 NG/DL (0.76-1.46); GLOMERULAR FILTRATION RATE > 60.0 (>45); GLUCOSE, FASTING 89 MG/DL (70-100); POTASSIUM SERUM 3.7 MEQ/L (3.5-5.1); SODIUM LEVEL 141 MEQ/L (136-145); THYROID STIMULATING HORMONE 0.379 uIU/ML (0.358-3.740); TOTAL 25(OH) VITAMIN D 29.5 NG/ML (30.0-100.0)
== END ==
LOC: M WUC 14:54
PROVIDERS: ATTEND Internal Medicine Endocrinology, Diabetes & Metabolism
DX: E83.51 Hypocalcemia (principal); E89.0 Postprocedural hypothyroidism

== ENCOUNTER → 2021-07-12 | Outpatient (CLI) | payer OTHER ==
[2021-07-12 12:59] LABS: HEMATOCRIT 38.5 % (36.0-47.0); HEMOGLOBIN 12.7 g/dl (12.0-15.5); MEAN CORPUSCULAR HEMOGLOBIN 28.7 pg (27.0-33.0); MEAN CORPUSCULAR VOLUME 86.9 fl (80.0-96.0); PLATELET COUNT, AUTOMATED 266 10^3/uL (150-450); RED BLOOD COUNT 4.43 10^6/uL (4.00-5.40); WHITE BLOOD COUNT 5.9 10^3/uL (4.0-10.0)
[2021-07-12 13:16] LABS: ALBUMIN 3.6 GM/DL (3.2-5.2); ALT/SGPT 18 U/L (12-78); AMYLASE 31 U/L (25-115); BILIRUBIN,TOTAL 0.4 MG/DL (0.2-1.0); BLOOD UREA NITROGEN 8 MG/DL (7-18); CARBON DIOXIDE LEVEL 28 MEQ/L (21-32); CHLORIDE LEVEL 109 MEQ/L (98-107); CREATININE FOR GFR 0.74 MG/DL (0.55-1.30); GLOMERULAR FILTRATION RATE > 60.0 (>45); GLUCOSE, FASTING 105 MG/DL (70-100); LIPASE 81 U/L (73-393); POTASSIUM SERUM 4.1 MEQ/L (3.5-5.1); SODIUM LEVEL 144 MEQ/L (136-145); TOTAL PROTEIN 6.9 GM/DL (6.4-8.2)
== END ==
LOC: M WUC 11:04
PROVIDERS: ATTEND Student in an Organized Health Care Education/Training Program
DX: R10.32 Left lower quadrant pain (principal); R19.7 Diarrhea, unspecified

== ENCOUNTER → 2021-07-12 | Outpatient (REF) | payer OTHER | LOC: M LAB REF 19:08 | PROVIDERS: ATTEND Student in an Organized Health Care Education/Training Program | DX: R10.32 Left lower quadrant pain (principal); R19.7 Diarrhea, unspecified ==

== ENCOUNTER → 2021-08-28 | Outpatient (REF) | payer OTHER | LOC: M SFHCADAM 16:13 | PROVIDERS: ATTEND Physician Assistant | DX: J01.90 Acute sinusitis, unspecified (principal) ==

== ENCOUNTER → 2021-11-21 | Outpatient (CLI) | payer OTHER ==
[2021-11-21 16:17] LABS: BLOOD UREA NITROGEN 12 MG/DL (7-18); CALCIUM LEVEL 9.2 MG/DL (8.8-10.2); CARBON DIOXIDE LEVEL 27 MEQ/L (21-32); CHLORIDE LEVEL 107 MEQ/L (98-107); CREATININE FOR GFR 0.84 MG/DL (0.55-1.30); FREE T4 0.72 NG/DL (0.76-1.46); GLOMERULAR FILTRATION RATE > 60.0 (>45); GLUCOSE, FASTING 124 MG/DL (70-100); SODIUM LEVEL 140 MEQ/L (136-145); THYROID STIMULATING HORMONE 0.348 uIU/ML (0.358-3.740)
[2021-11-21 16:21] LABS: TOTAL 25(OH) VITAMIN D 45.4 NG/ML (30.0-100.0)
== END ==
LOC: M WUC 14:24
PROVIDERS: ATTEND Internal Medicine Endocrinology, Diabetes & Metabolism
DX: E89.0 Postprocedural hypothyroidism (principal); E55.9 Vitamin D deficiency, unspecified

== ENCOUNTER 2022-03-13 09:11 | Emergency (ER) | payer OTHER, MEDICARE ==
[~2022-03-13] VITALS: Ht 162.6 cm; Wt 103.9 kg
[2022-03-13] MEDS ORDERED: HYDR-4571 (09:20)
[2022-03-13] MEDS ORDERED: NS 1,000 ML IV ONE (10:10)
[2022-03-13] MEDS ORDERED: ONDANSETRON 4MG 2ML VIAL IV ONE (10:10)
[2022-03-13 10:27] LABS: HEMATOCRIT 35.2 % (36.0-47.0); HEMOGLOBIN 11.8 g/dl (12.0-15.5); MEAN CORPUSCULAR HEMOGLOBIN 29.1 pg (27.0-33.0); MEAN CORPUSCULAR HGB CONC 33.5 g/dl (32.0-36.5); MEAN CORPUSCULAR VOLUME 86.9 fl (80.0-96.0); PLATELET COUNT, AUTOMATED 414 10^3/uL (150-450); RED BLOOD COUNT 4.05 10^6/uL (4.00-5.40); WHITE BLOOD COUNT 9.2 10^3/uL (4.0-10.0)
[2022-03-13] MEDS ORDERED: ISOVUE-370 76% 100ML VIAL As Ordered ONE (10:27)
[2022-03-13 11:06] LABS: ALBUMIN 3.8 GM/DL (3.2-5.2); ALT/SGPT 16 U/L (12-78); BILIRUBIN,TOTAL 0.5 MG/DL (0.2-1.0); BLOOD UREA NITROGEN 6 MG/DL (7-18); CALCIUM LEVEL 9.6 MG/DL (8.8-10.2); CARBON DIOXIDE LEVEL 27 MEQ/L (21-32); CHLORIDE LEVEL 98 MEQ/L (98-107); CREATININE FOR GFR 0.83 MG/DL (0.55-1.30); GLOMERULAR FILTRATION RATE > 60.0 (>45); GLUCOSE, FASTING 109 MG/DL (70-100); SODIUM LEVEL 131 MEQ/L (136-145); TOTAL PROTEIN 7.6 GM/DL (6.4-8.2)
[2022-03-13 11:08] LABS: CK-MB VALUE MASS < 1.0 NG/ML (<3.6); CPK CREATINE PHOSPHOKINASE 47 U/L (26-192); MB/CK RELATIVE INDEX 2.13 (< OR =4)
[2022-03-13 14:19] LABS: NT-PRO BNP 84 PG/ML (<125)
[2022-03-13 14:44] VITALS: BP 150/80
== END 2022-03-13 14:52 | disposition home or self-care (01) ==
LOC: M ED 09:11
DX: R06.02 Shortness of breath (principal); R42 Dizziness and giddiness; N28.1 Cyst of kidney, acquired; I10 Essential (primary) hypertension; Z88.1 Allergy status to other antibiotic agents; Z88.2 Allergy status to sulfonamides; Z88.8 Allergy status to other drugs, medicaments and biological substances; Z91.040 Latex allergy status; Z96.651 Presence of right artificial knee joint
CPT/HCPCS: 71275; 80053; 82550; 82553; 83880; 84484; 85027; 85730; 87428; 93005; 96361; 96374; 99284; J2405; Q9967

== ENCOUNTER 2023-02-23 12:18 | Emergency (ER) | payer MEDICARE, OTHER ==
[~2023-02-23] VITALS: Ht 162.6 cm; Wt 104.5 kg
[~2023-02-23 12:18] MED LIST changes: +HYDR-4571
[2023-02-23 12:19] VITALS: TEMP 97.9
[2023-02-23 15:16] LABS: BASO % 0.3 % (0.0-1.0); EOS # 0.1 10^3/uL (0.0-0.5); HEMATOCRIT 38.2 % (36.0-47.0); LYMPH # 1.8 10^3/uL (1.5-5.0); LYMPH % 29.7 % (24.0-44.0); MEAN CORPUSCULAR HEMOGLOBIN 28.9 pg (27.0-33.0); MEAN CORPUSCULAR VOLUME 84.9 fl (80.0-96.0); MONO # 0.5 10^3/uL (0.0-0.8); NEUTROPHILS # 3.6 10^3/uL (1.5-8.5); NEUTROPHILS % 59.8 % (36.0-66.0); PLATELET COUNT, AUTOMATED 285 10^3/uL (150-450)
[2023-02-23 15:33] LABS: LIPASE 23 U/L (12-53)
[2023-02-23 15:36] LABS: ALBUMIN 3.7 G/DL (3.2-5.2); ALKALINE PHOSPHATASE 98 U/L (46-116); ALT/SGPT 10 U/L (7.0-40); AST/SGOT 12 U/L (<34); BILIRUBIN,DIRECT 0.2 MG/DL (<0.4); BILIRUBIN,TOTAL 0.6 MG/DL (0.3-1.2); BLOOD UREA NITROGEN 8 MG/DL (9-23); CARBON DIOXIDE LEVEL 26 MMOL/L (20-31); CHLORIDE LEVEL 105 MMOL/L (98-107); CREATININE FOR GFR 0.74 MG/DL (0.55-1.30); GLOMERULAR FILTRATION RATE > 60.0 (>45); GLUCOSE, FASTING 93 MG/DL (74-106); MAGNESIUM LEVEL 1.7 MG/DL (1.8-2.4); POTASSIUM SERUM 4.4 MMOL/L (3.5-5.1); SODIUM LEVEL 141 MMOL/L (136-145); TOTAL PROTEIN 6.5 G/DL (5.7-8.2)
[2023-02-23] MEDS ORDERED: NS 1,000 ML IV ONE (16:00)
[2023-02-23] MEDS ORDERED: ISOVUE-370 76% 100ML VIAL As Ordered ONE (16:31)
[2023-02-23 19:01] VITALS: BP 154/73
[2023-02-23 19:03] VITALS: O2SAT 98
== END 2023-02-23 19:53 | disposition home or self-care (01) ==
LOC: M ED 12:18
DX: R19.7 Diarrhea, unspecified (principal); I10 Essential (primary) hypertension; E05.00 Thyrotoxicosis with diffuse goiter without thyrotoxic crisis or storm; Z85.43 Personal history of malignant neoplasm of ovary; Z88.2 Allergy status to sulfonamides; Z88.8 Allergy status to other drugs, medicaments and biological substances; Z91.040 Latex allergy status; Z79.899 Other long term (current) drug therapy
CPT/HCPCS: 36415; 71045; 74177; 80048; 80076; 81001; 83690; 83735; 85025; 99284; Q9967

== ENCOUNTER → 2023-02-24 | Outpatient (REF) | payer OTHER | LOC: M LAB REF 12:08 | PROVIDERS: ATTEND Internal Medicine | DX: R19.7 Diarrhea, unspecified (principal) ==

== ENCOUNTER → 2023-07-03 | Outpatient (REF) | payer OTHER, MEDICARE | LOC: M SFHCDERM 13:23 | PROVIDERS: ATTEND Physician Assistant | DX: D48.9 Neoplasm of uncertain behavior, unspecified (principal) ==

== ENCOUNTER → 2024-04-23 | Outpatient (CLI) | payer OTHER ==
[~2024-04-23] MED LIST changes: +GASTROGRAFIN SOLUTION 30ML As Ordered ONE
== END ==
LOC: M RAD 12:01
PROVIDERS: ATTEND Family Medicine
DX: R10.32 Left lower quadrant pain (principal)
CPT/HCPCS: 74176; Q9963

== ENCOUNTER → 2024-04-24 | Outpatient (REF) | payer OTHER ==
[~2024-04-24] MED LIST changes: -GASTROGRAFIN SOLUTION 30ML As Ordered ONE
== END ==
LOC: M LAB REF 13:31
PROVIDERS: ATTEND Family Medicine
DX: K52.9 Noninfective gastroenteritis and colitis, unspecified (principal)

== ENCOUNTER → 2024-05-26 | Outpatient (REF) | payer OTHER, MEDICARE ==
[2024-05-26 19:33] LABS: FREE T4 1.01 NG/DL (0.89-1.76); THYROID STIMULATING HORMONE 0.292 uIU/ML (0.55-4.78)
== END ==
LOC: M LAB REF 19:05
PROVIDERS: ATTEND Family Medicine
DX: E89.0 Postprocedural hypothyroidism (principal)

== ENCOUNTER → 2025-02-09 | Outpatient (REF) | payer OTHER, MEDICARE ==
[~2025-02-09] MED LIST changes: -CLOT10TR PO; +CLOT10TR11 PO
[2025-02-09 17:44] LABS: ALT/SGPT 17 U/L (7.0-40); APPEARANCE, URINE HAZY (CLEAR); AST/SGOT 19 U/L (<34); BACTERIA, URINE AUTO 1+ (NEGATIVE); BILIRUBIN, URINE AUTO NEGATIVE (NEGATIVE); BLOOD, URINE BLOOD NEGATIVE (NEGATIVE); C REACTIVE PROTEIN QUANTITATIV 2.78 MG/DL (<1.0); CALCIUM LEVEL 9.6 MG/DL (8.3-10.6); CARBON DIOXIDE LEVEL 28 MMOL/L (20-31); CHLORIDE LEVEL 100 MMOL/L (98-107); CREATININE FOR GFR 0.71 MG/DL (0.55-1.30); GLOMERULAR FILTRATION RATE > 90.0 (>45); GLUCOSE, URINE (UA) AUTO NEGATIVE (NEGATIVE); KETONE, URINE AUTO NEGATIVE (NEGATIVE); LEUKOCYTE ESTERASE, URINE AUTO 1+ (NEGATIVE); NITRITE, URINE AUTO NEGATIVE (NEGATIVE); POTASSIUM SERUM 4.2 MMOL/L (3.5-5.1); PROTEIN, URINE AUTO NEGATIVE (NEGATIVE); RBC, URINE AUTO 1 /HPF (0-3); SODIUM LEVEL 139 MMOL/L (136-145); SPECIFIC GRAVITY URINE AUTO 1.008 (1.002-1.035); SQUAMOUS EPITHELIAL CELL UR AU 4 /HPF (0-6); UROBILINOGEN, URINE AUTO 0.2 mg/dL (0.0-2.0); WBC, URINE AUTO 1 /HPF (0-3)
[2025-02-09 17:48] LABS: BASO # 0.0 10^3/uL (0.0-0.2); BASO % 0.3 % (0.0-1.0); EOS # 0.1 10^3/uL (0.0-0.5); EOS % 1.4 % (0.0-3.0); FREE T4 1.06 NG/DL (0.89-1.76); LYMPH # 1.7 10^3/uL (1.5-5.0); LYMPH % 19.8 % (24.0-44.0); MONO # 0.5 10^3/uL (0.0-0.8); MONO % 6.1 % (2.0-8.0); NEUTROPHILS # 6.2 10^3/uL (1.5-8.5); NEUTROPHILS % 72.2 % (36.0-66.0); PLATELET COUNT, AUTOMATED 298 10^3/uL (150-450)
[2025-02-09 18:06] LABS: ESTIMATED AVERAGE GLUCOSE 117.0 MG/DL (60-110)
== END ==
LOC: M SFHCADAM 13:30
PROVIDERS: ATTEND Family Medicine
DX: R30.0 Dysuria (principal); R53.83 Other fatigue; U09.9 Post COVID-19 condition, unspecified; E89.0 Postprocedural hypothyroidism

== ENCOUNTER → 2025-02-09 | Outpatient (CLI) | payer OTHER, MEDICARE | LOC: M ADAMS 13:38 | PROVIDERS: ATTEND Family Medicine | DX: R53.83 Other fatigue (principal); U09.9 Post COVID-19 condition, unspecified ==